=== PATIENT | male | born 1960 | race Caucasian/White ===

== ENCOUNTER 2023-10-20 13:01 | Inpatient (IN) | payer MEDICARE, OTHER, SELFPAY ==
[2023-10-20] VITALS (13 sets, daily range): BP systolic 103–120; BP diastolic 62–81; BMI 26.9
--- NOTE | 2023-10-20 13:13 | HPS.HSE ---
Family Physician
-
Family Physician: NO INTERVIEW UNKNOWN
Chief Complaint
-
cardiac arrest
History of Present Illness
63-year-old gcnwj-gqjc-tabfoyzk male suffered cardiac arrest while at [employer] this morning. CPR performed by bystander emergency room physician at the gym x 5-7 minutes. Patient defibrillated x 2 by AED and regained ROSC.
Transported to [facility] where he underwent a non-contrast Head CT with no acute intracranial findings and a cardiac cath that revealed multivessel disease. Patient was treated with IV heparin and aspirin. Patient was transferred to
[facility] CVICU on 10/19/2028 for further intervention. Patient is pain-free and conversant on arrival to CVICU.
Left Heart Cath (right radial 10/20/23 by Mino Chauhan):
Left main: 30% distal tapering
Left anterior descendin% ostial followed by proximal total occlusion. Small distal LAD or possibly a distal diagonal branch fills via wbdy-bi-elkc collaterals
Left circumflex: Nondominant. Distal circumflex occluded distal posterior left ventricular branch fills distally with faint right to left collaterals
Right coronary artery: 90% proximal followed by 80-90 stenosis. 95% focal stenosis at the acute margin.
Medical History
Past Medical History
Past Medical History: Reports None
Past Surgical History: Reports Other (Right inguinal hernia repair)
Social History
Tobacco: Non-smoker
Alcohol: None
Drug: None
Personal:
Living: With Family
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
Family History
Family History: Not pertinent
Allergies / Home Medications
Allergies reflects when Allergies were last updated in redealize.
Home Medications with original date entered in redealize
Allergy/Medication List:
Allergies
Allergy/AdvReac Type Severity Reaction Status Date / Time
No Known Allergies Allergy Unverified 10/20/23 13:13
No meds
Review of Systems
-
History Source: Patient
A 12 point ROS was completed and negative except as noted: Yes
Constitutional: Reports No Symptoms
EENT: Reports No Symptoms
Respiratory: Reports No Symptoms
Cardiac: Reports See HPI
Abdomen/GI: Reports No Symptoms
: Reports No Symptoms
Musculoskeletal: Reports No Symptoms
Skin: Reports No Symptoms
Neurological: Reports No Symptoms
Endocrine: Reports No Symptoms
Hematologic/Lymphatic: Reports No Symptoms
Psych: Reports No Symptoms
Physical Exam
Physical Exam
General: Well Developed, Well Nourished, No Apparent Distress, Comfortable and Conversant
HEENT: NormoCephalic, Anicteric, Moist mucous membranes, PERRLA, Nose Appears Normal, Ears Appear Normal and Neck Nontender
Respiratory: Clear
Cardiac: S1/S2 and Regular Rhythm
Breast: N/A
GI: Soft, Non Tender, Non Distended, Normal Bowel Sounds, No Hepatosplenomegaly and No Hernias
Rectal: Deferred by Provider
Genito-urinary: Deferred by me
Musculoskeletal: No Cyanosis and No Edema
Skin: Warm, Dry and Other (Right radial TR band without bleeding)
Neuro: AO x 3, No Motor Deficits, Nonfocal/grossly intact and No Sensory Deficits
Hematologic/Lymphatic: No Lymphadenopathy
Psych: Calm
Laboratory Results
-
Labs from [facility]:
EKG: SR @ 85BPM
T-Next gen Trop 25
CBC: WBC 9.1; Hb 16.7; Hct 49.3; Plt 173k
INR: 1.08
PTT: 21
Chem: Na+ 139; K+ 4.2; Chlor 106; CO2 15.7; BUN 11; Creat 1.08; GLU 182
LFT: AST 45; ALT hemolyzed
Data Reviewed
-
Diagnostic Radiology: Report Reviewed by me and Discussed with Physician
Medical Tests (Nuc Med, Echo, EKG etc): Report Reviewed by me and Discussed with Physician
Lab Data: Labs Reviewed by me and Discussed with Physician
Impression/Plan
-
IMPRESSION:
63-year-old male status post outside hospital cardiac arrest achieved ROSC after 5 to 7 minutes CPR and AED defibrillation x 2. Found to have triple-vessel coronary disease by cardiac cath at [facility]. Transferred to [facility]
for CABG evaluation
PLAN:
-Surgeon to review imaging and discuss surgical procedure, risk/benefit ratio, and expected recovery trajectory
-trend troponins
-resume IV Heparin @ 1630
-begin ASA, statin, beta-barbra
-Preop diagnostics including lipid profile-ordered
-Plan for CABG on 10/[address] Land
--- NOTE | 2023-10-20 13:52 | PTCARENOTE ---
received pt from [place] into 2267. Pt is AAOX3, follows commands and moves all extremities, denies HERNANDEZ or dizziness. Sinus rhythm on tele, + peripheral pulses, no edema, denies CP or SOB. Lungs CTA, pox 94% on RA. +BS, denies nausea, DTV, skin
intact. Pt was oriented to CV ICU, safety precautions, and plan of care. Questions encouraged.
--- NOTE | 2023-10-20 14:00 | CON.CAR ---
Consultation
Consultation Request
Date/Time Consultation Requested: October 20, 2023 at 13:59
Date/Time Consultation Performed: October 20, 2023 at 14:00
Requesting Provider: Dr. Dariusz Land
Performing Provider: Dr. Jake Andrade
Reason for Consultation: Pre-CABG. Out of Hospital cardiac arrest with multivessel CADz
Medical History
-
Chief Complaint: Vbo-li-ncewxrok cardiac arrest with catheterization at [facility]
History of Present Illness:
This is a 63-year-old gentleman who is physically quite active. He is an exercise enthusiast running, cycling, and working out at a local [employer]. He ran 5 miles about a week or 2 ago and reported he was had to work a little bit harder in
order to complete the run than he was used to in the past. He went to [employer] and had been on the elliptical then transition to a bench press machine when he experienced sudden loss of consciousness. He received CPR and AED shocks x 2 and
was transferred to [facility]. His initial ECG had no ST elevations. He was referred for semiemergent coronary angiography and found to have subtotal occlusion of the ostial/proximal LAD, occlusion of the distal circumflex and high-grade
stenosis in the proximal and mid RCA which is either a dominant or co-dominant artery. The LAD is noted to fill primarily by left to left collaterals and by faint right to left collaterals.
He denies overt chest pain. He takes no medications. He had generally been feeling well.
Past Medical History
Past Medical History: None
Past Surgical History: Other (Hernia repair)
Social History
Tobacco: Non-Smoker
Alcohol: Occasional
Drug: None
Personal:
Living: With Family
Family History
Family History: Reviewed & Not Pertinent ( Mother in her 90's with permanent pacemaker later in life. Father in 80's. Hx of CADz but not until later in life. No family history of premature CADz)
Allergies / Home Medications
Allergy/AdvReac Type Severity Reaction Status Date / Time
No Known Allergies Allergy Unverified 10/20/23 13:13
Review of Systems
-
History Source: Patient
All other systems: Negative unless noted
Constitutional: No Symptoms (Maybe a little more fatigued over the past several weeks)
EENT: No Symptoms
Respiratory: No Symptoms
Cardiac: No Symptoms
Abdomen/GI: No Symptoms
Musculoskeletal: No Symptoms
Skin: No Symptoms
Physical Exam
Vital Signs
Temp Pulse Resp BP Pulse Ox
98.8 F 87 22 115/81 94
10/20/23 13:26 10/20/23 13:45 10/20/23 13:45 10/20/23 13:26 10/20/23 13:45
Lab Results
10/20/23 13:13
10/20/23 13:13
Physical Exam
General: Well Developed, Well Nourished and No Apparent Distress
HEENT: Normocephalic and Anicteric
Respiratory: Clear
Cardiac: S1/S2, Regular Rhythm and Murmur (None)
GI: Soft, Non Tender, Non Distended and Normal Bowel Sounds
Musculoskeletal: No Clubbing
Skin: Warm and Dry
Neuro: AO x 3 and No Motor Deficits
Impression / Plan
-
IMPRESSION:
-Svi-tr-iwjjtcze cardiac arrest with AED shock x 2
-Multivessel coronary artery disease by coronary angiography
-Unknown lipid
RECOMMENDATION:
-Aspirin 325 mg loading dose followed by 81 mg daily
-Initiate high intensity lipid-lowering
-Check fasting lipid profile if not already done
-Trend serial troponin levels
-Consider echocardiogram if not already done
-CT surgical evaluation ongoing with planned bypass surgery
-Will follow with you
Data Reviewed
-
EKG: Tracing Personally Visualized and interpreted
Medical Tests (Nuc Med, Echo etc): Image Personally Visualized and interpreted (Echocardiogram and coronary angiography) and Other (Cardiac catheterization angiogram)
Old Records: Reviewed
--- NOTE | 2023-10-20 14:09 | CON.INTV ---
Consultation
Consultation Request
Date/Time Consultation Requested: 10/20/2023
Date/Time Consultation Performed: 10/20/2023
Requesting Provider: Dr. Dunlap
Performing Provider: Dr. Haseeb Esparza
Reason for Consultation: Severe triple-vessel coronary artery disease
Medical History
-
History of Present Illness:
63-year-old man who reports no significant past medical history, developed a cardiac arrest while at the gym the morning of 10/20/2023. CPR started immediately by bystander, defibrillated x 2 with AED with ROSC. Transferred to [facility]
hospital, workup showed no abnormalities initially. Subsequently underwent cardiac catheterization that revealed multivessel coronary artery disease.
Treated with anticoagulation and antiplatelets. Transferred to [facility] for evaluation, CT surgery contemplating CABG.
He has been placed in the critical care unit for close monitoring.
Past Medical History
Past Medical History: Other (None)
Social History
Tobacco: Non-smoker
Alcohol: None
Drug: None
Personal:
Living: With Family
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
Family History
Family History: Other (Reports father with coronary artery disease.)
Allergies / Home Medications
Allergies
Allergy/AdvReac Type Severity Reaction Status Date / Time
No Known Allergies Allergy Unverified 10/20/23 13:13
Review of Systems
-
History Source: Patient
All other systems: Negative unless noted
Vitals / Labs / Diagnostic Testing
Vital Signs
Temp Pulse Resp BP Pulse Ox
98.8 F 87 22 115/81 94
10/20/23 13:26 10/20/23 13:45 10/20/23 13:45 10/20/23 13:26 10/20/23 13:45
Lab Data
10/20/23 13:13
10/20/23 13:13
Diagnostic Testing:
Physical Exam
-
HEENT: Normocephalic
Cardiovascular: S1/S2
Respiratory: Clear and Non-Labored Respirations
GI: Soft and Non Distended
Neurology: Awake, Alert, Oriented, AO x 3 and No Motor Deficits
Skin: Warm
General: Comfortable
Assessment
-
Cardiac arrest status post CPR: Out of the hospital.
Three-vessel coronary artery disease
Left heart catheterization: Multivessel coronary artery disease 10/20/[address] Mino Chauhan at [facility]
Never smoker
No prior history of medical problems-does not take any outpatient medication.
Assessment and plan:
Currently asymptomatic-stable. Cooperative. Alert. Neurologically intact.
On evaluation for possible CABG on 10/24/2023.
Continue hemodynamic ICU monitoring. So far no evidence for arrhythmia.
EKG today normal sinus rhythm. Normal EKG
Heparin drip-follow PTT
Aspirin
Beta-barbra
Statins
Ongoing preoperative evaluation per primary team.
-
Diet as tolerated
-
Critical care team will continue to follow.
[2023-10-20 14:37] LABS: INR 1.14; PT 14.4 Sec (11.4-14.6)
[2023-10-20 14:38] LABS: APTT 60.6 Sec (23.4-35.0)
[2023-10-20 14:39] LABS: APTT 62.8 Sec (23.4-35.0)
--- NOTE | 2023-10-20 14:49 | PTCARENOTE ---
1345- 3 ml air removed from TR band R radial artery. negative hematoma, negative bleeding. VSS. See post cath flowsheet. Will follow post cath TR band protocol and continue to monitor.
--- NOTE | 2023-10-20 16:25 | CM ---
CM following for DC planning needs.
Met w/ patient, spouse, dtr. and MIRTHA at bedside.
Introduced CM, explained role.
Pt. resides w/ spouse in a private, 2 story home. Functionally, patient was quite indep. prior to admission w/ ADLs, mobility without the use of any assisted device. Pt. is quite active, was at the gym this AM; runs, bikes, etc.
Pt. has Rx plan and uses [facility] in [place] ([address]) for prescription needs.
Pt. is anticipating CABG on 10/23.
CM completed pre-op teaching.
Reviewed pre and post op routines.
Cardiac Surgery booklet provided.
Discussed post op restrictions to include lifting, driving, flying and sternal precautions.
Reviewed post-op MD appointments, Cardiac Rehab and visit from CT Transitional Care RN.
Plan for CT Surgery next wk.
Anticipated DC plan is for home w/ CT Transitional Care RN.
CM to follow for DC planning needs.
[2023-10-20] MEDS: LIPITOR 80 MG PO (17:10)
[2023-10-20] MEDS: HEPARIN 25000 UNITS/250 ML IV (17:11)
[2023-10-20] MEDS: TYLENOL PO (17:14)
--- NOTE | 2023-10-20 17:15 | PTCARENOTE ---
Patient transported to Ultrasound with RN and transport escort, returned uneventful. Heparin gtt started as ordered. PTT due at 2310. Will continue to monitor.
--- NOTE | 2023-10-20 20:30 | PTCARENOTE ---
Assumed care of patient at 1900. Pt is awake, alert, and oriented. No complaints of pain at this time. Pt remains SR with HR 80's. BP 111/75 MAP 86. Pulse oximetry 93% on room air. Right radial site CDI. Pulses palpable. Pt remains on heparin gtt at
1400units/hr. Pt currently resting comfortably in bed with call aguilar within reach.
[2023-10-20] MEDS: LOPRESSOR 12.5 MG PO (20:32)
[2023-10-20] MEDS: TYLENOL 650 MG PO (20:32)
[2023-10-20 21:17] LABS: Troponin I 0.438 ng/ml
--- NOTE | 2023-10-20 23:33 | PTCARENOTE ---
Pt remains chest pain free. Remains SR with HR 70's-80's. BP 113/65 MAP 76. Pulse oximetry 93% on room air. Remains on heparin gtt.
[2023-10-20 23:44] LABS: APTT 52.9 Sec (23.4-35.0)
[2023-10-21] VITALS (15 sets, daily range): BP systolic 94–135; BP diastolic 54–87; BMI 27.3
[2023-10-21] MEDS: TYLENOL 650 MG PO ×4 (00:15→16:03)
[2023-10-21] MEDS: XANAX 0.25 MG PO (02:53)
[2023-10-21 02:59] LABS: Hematocrit 41.5 % (39.0-52.0); Hemoglobin 14.9 g/dL (13.0-18.0); Mean Corp Hgb Conc. 35.9 g/dL (33.0-37.0); Mean Corpuscular Volume 86.5 fL (80.0-94.0); Mean Platelet Volume 9.5 fL (7.4-10.4); Platelet Count 154 10^3/uL (130-400); Red Cell Dist. Width 12.7 % (11.5-14.5); White Blood Cell Count 10.9 10^3/uL (4.8-10.8)
[2023-10-21 03:20] LABS: Troponin I 0.352 ng/ml
--- NOTE | 2023-10-21 03:30 | PTCARENOTE ---
Pt remains SR with HR 60's-70's. BP 120/73 MAP 87. No complaints of chest pain. Morning labs collected. Weight obtained. Remains on heparin gtt.
[2023-10-21 04:13] LABS: ALT (SGPT) 27 U/L (0-50); AST (SGOT) 46 U/L (17-59); Albumin 3.6 g/dl (3.5-5.0); Alkaline Phosphatase 44 U/L (38-126); Blood Urea Nitrogen 11 mg/dl (9-20); Calcium 8.9 mg/dl (8.4-10.2); Carbon Dioxide 21 mmol/L (22-30); Chloride 106 mmol/L (98-107); Direct Bilirubin 0.3 mg/dl (0.0-0.4); Estimated Creatinine Clearance 107 ml/min; Glucose 100 mg/dl (70-99); HDL Cholesterol 47 mg/dl; LDL Cholesterol, Calculated 139 mg/dl; Sodium 137 mmol/L (135-145); Total Bilirubin 1.7 mg/dl (0.2-1.3); Total Cholesterol 199 mg/dl (50-199); Triglyceride 69 mg/dl (10-149); Very Low Density Lipoprotein 13 mg/dl (0-30); eGFR > 60.00
[2023-10-21] MEDS: TYLENOL PO ×2 (05:12→19:56)
[2023-10-21 06:27] LABS: APTT 69.2 Sec (23.4-35.0)
--- NOTE | 2023-10-21 08:00 | PTCARENOTE ---
pt received from previous RN, oriented, in bed. SR on the monitor, HR 60-80s. pt denies CP or SOB. SBP 100s. palpable pulses. no edema. pt on RA, POX 90-94%. lungs clear. pt abdomen s/n, denies n/v. diet tolerated well. voids. R radial site c/d/i.
PIV x2. heparin gtt running per protocol. see worklist for VS, I&O, and assessment.
[2023-10-21] MEDS: LOW STRENGTH ASPIRIN 81 MG PO (08:38)
[2023-10-21] MEDS: LOPRESSOR 12.5 MG PO ×2 (08:38→19:49)
[2023-10-21] MEDS: HEPARIN 25000 UNITS/250 ML IV ×2 (09:42→22:09)
--- NOTE | 2023-10-21 10:36 | W.PN.CARDCBS ---
Today's Communication / Plan
-
Awaiting CABG
Chest x-ray pending
Telemetry stable
Repeat echocardiogram
Antiplatelet therapy and lipid-lowering.
Eventual Plavix with aspirin given mildly elevated troponins
Impression / Plan
-
IMPRESSION:
-Sag-bg-fdrqpmir cardiac arrest with AED shock x 2
-Multivessel coronary artery disease by coronary angiography
-Unknown lipid
Carotid ultrasound 10/20/2023: Soft plaque is identified in the bilateral common carotid arteries and bilateral carotid bulbs. Carotid velocity measurements bilaterally are consistent with less than 50% internal carotid artery stenosis. Vertebral
artery flow is antegrade bilaterally.
Echocardiogram 09/23/2023 (performed at [facility]): Technically difficult study. Ejection fraction 55% with likely hypokinesis of the anterior septum, distal septum and apex. Thickened aortic valve predominantly noncoronary cusp likely trileaflet.
In parasternal long axis view thickening appears more prominent. Flow near the mitral valve. May be mitral regurgitation.
RECOMMENDATION:
-Owa-zw-oyvkyhma arrest resuscitated at [facility] with AED shock x 2 and CPR. Cardiac catheterization with multivessel coronary artery disease.
-Plan for CABG being followed by CT surgery.
-Rib pain and chest x-ray pending.
-Continue lipid-lowering which was started this admission and antiplatelet treatment. Peak troponin 0.438. Eventually Plavix in addition.
-Echocardiogram performed elsewhere with fair quality. Normal heart function and mild segmental wall motion abnormality. Aortic valve thickening and flow near the mitral valve. We will repeat echocardiogram here to assess valves.
-Tele stable
Progress Note - Tree [facility]
Subjective
Date of Service: October 21, 2023
Some rib pain noted. No chest pain or palpitations. His is at the bedside.
Objective
Labs:
10/21/23 02:43
10/21/23 02:43
Labs
Hgb 14.9 g/dL (13.0-18.0) 10/21/23 02:43
Hct 41.5 % (39.0-52.0) 10/21/23 02:43
Plt Count 154 10^3/uL (130-400) 10/21/23 02:43
PT 14.4 Sec (11.4-14.6) 10/20/23 14:11
INR 1.14 10/20/23 14:11
APTT 69.2 Sec (23.4-35.0) H 10/21/23 06:04
Sodium 137 mmol/L (135-145) 10/21/23 02:43
Potassium 4.0 mmol/L (3.5-5.1) 10/21/23 02:43
BUN 11 mg/dl (9-20) 10/21/23 02:43
Creatinine 0.8 mg/dL (0.7-1.3) 10/21/23 02:43
Glucose 100 mg/dl (70-99) H 10/21/23 02:43
Troponins
10/20/23 10/20/23 10/21/23
14:11 20:41 02:43
Troponin I 0.320 H* 0.438 H* D 0.352 H*
Vital Signs and I&O:
Vital Signs
Temp Pulse Resp BP Pulse Ox
97.6 F 75 19 114/70 94
10/21/23 08:00 10/21/23 10:15 10/21/23 10:15 10/21/23 10:00 10/21/23 10:33
Vital Signs
Temp Pulse Resp BP Pulse Ox
97.6 F 75 19 114/70 94
10/21/23 08:00 10/21/23 10:15 10/21/23 10:15 10/21/23 10:00 10/21/23 10:33
Intake & Output
10/19/23 10/20/23 10/21/23 10/22/23
06:59 06:59 06:59 06:59
Intake Total 420 / 420 51 / 51
Output Total 1300 / 1300 1000 / 1000
Balance -880 / -880 -949 / -949
Physical Exam
Physical Exam
General: Well developed, well nourished in NAD.
Heart: Non displaced PMI, RRR, no murmurs, No S3, S4, no rubs.
Lungs: Clear to auscultation bilaterally, no wheeze, rhonchi, rubs bilaterally,
normal expiratory phase.
Extremities: No clubbing, cyanosis or edema bilaterally.
Neuro: Grossly nonfocal, awake, alert and oriented x3.
--- NOTE | 2023-10-21 12:14 | W.PN.CT ---
Today's Communication / Plan
-
Continue heparin drip
Preoperative studies ordered awaiting 2 view chest x-ray and carotid ultrasounds
Echo report pending, images are poor quality and study will be repeated today.
Assessment / Plan
-
Assessment: Outside hospital cardiac arrest with CPR defibrillation transferred to [facility] for urgent cath which revealed critical coronary artery disease, transfer to [facility] for CABG on Monday
Preoperative studies ordered
Continue heparin drip
Discussed patient care with: Nursing
Subjective
Procedure
Preop CABG 4 10/24/2023
No complaints, no chest pain no anginal symptoms overnight.
Carotid ultrasound study done
2 view chest x-ray today
Continue heparin drip
Maximize medical management of critical CAD
Patient may shower and can increase activity out of bed ad nunu.
Echo today
-
Date of Service: October 21, 2023
Objective Data
-
Lab Results
10/21/23 02:43
10/21/23 02:43
PT 14.4 Sec (11.4-14.6) 10/20/23 14:11
INR 1.14 10/20/23 14:11
APTT 69.2 Sec (23.4-35.0) H 10/21/23 06:04
Vital Signs
Vital Signs
Temp Pulse Resp BP Pulse Ox
97.6 F 75 19 114/70 94
10/21/23 08:00 10/21/23 10:15 10/21/23 10:15 10/21/23 10:00 10/21/23 10:33
CT Intake/Output/Weight
10/20/23 10/21/23 10/21/23
18:59 06:59 18:59
Intake Total 240 / 240 180 / 420 51 / 51
Output Total 200 / 200 1100 / 1300 1000 / 1000
Balance 40 / 40 -920 / -880 -949 / -949
SaO2: 94
Physical Exam
-
General: Awake, Oriented and AOx3
Cardiovascular: Regular rate & rhythm
Respiratory: Clear
Extremities: No Edema
Data Reviewed
-
Lab Results: Results Reviewed
Medications: Active Meds Reviewed
Chest X-Ray: Image Reviewed
ECG: Image Reviewed
--- NOTE | 2023-10-21 12:45 | PTCARENOTE ---
pt VSS, no changes in assessment. pt OOB to chair. voids in urinal. denies CP. heparin gtt running per protocol.
[2023-10-21 13:31] LABS: Glycohemoglobin (HgbA1c) 5.5 % (4.0-5.6)
[2023-10-21 13:39] LABS: APTT 86.7 Sec (23.4-35.0)
--- NOTE | 2023-10-21 16:36 | PTCARENOTE ---
pt VSS, no changes in assessment. pt showered. OOB in chair. heparin gtt running per protocol. no c/o CP or SOB.
[2023-10-21] MEDS: LIPITOR 80 MG PO (18:21)
[2023-10-21 20:06] LABS: APTT 82.8 Sec (23.4-35.0)
--- NOTE | 2023-10-21 21:37 | PTCARENOTE ---
Addendum entered by Monet Orr RN 10/22/23 02:07:
Pt. with complaints of 4/10 left rib pain from CPR. Pt. does not want to take scheduled Tylenol for the pain since it is not affecting his ability to sleep. No complaints of CP at this time. Pt. instructed to call RN immediately with new onset CP
and verbalizes understanding.
Original Note:
Pt. received as transfer from CVICU at change of shift. VSS, NSR on tele. Heparin gtt currently infusing at 17ml/hr. R radial cath site dry/intact and open to air. Plan of care discussed and pt. verbalizes understanding. Ambulating independently
in room without difficulty. Can make needs known. Call aguilar within reach.
[2023-10-22] VITALS (7 sets, daily range): BP systolic 111–143; BP diastolic 71–89; BMI 26.8
[2023-10-22] MEDS: TYLENOL PO (00:21)
[2023-10-22] MEDS: TYLENOL 650 MG PO ×2 (03:49→08:58)
[2023-10-22 04:11] LABS: APTT 90.8 Sec (23.4-35.0)
--- NOTE | 2023-10-22 05:53 | W.PN.CT ---
Today's Communication / Plan
-
Plan:
-Ongoing preop evaluation/workup
-Will repeat echo
-Cont. heparin gtt
-For CABG by Dr. Land likely 10/24/23
Assessment / Plan
-
Assessment:
-Out of hospital cardiac arrest S/p CPR and AED x 2
-Severe 3v CAD/30% distal LM
-No significant medical hx
-LVEF 55% per limited echo obtained @ [facility]
-S/P R inguinal herniorrhaphy
Discussed patient care with: Cardiology, Nursing, Pharmacy and Care Team
Subjective
-
Date of Service: October 22, 2023
No issues overnight, denies CP/SOB. Currently on heparin gtt
Objective Data
-
Lab Results
10/21/23 02:43
10/21/23 02:43
PT 14.4 Sec (11.4-14.6) 10/20/23 14:11
INR 1.14 10/20/23 14:11
APTT 90.8 Sec (23.4-35.0) H 10/22/23 03:40
Vital Signs
Vital Signs
Temp Pulse Resp BP Pulse Ox
98.5 F 75 16 126/76 92
10/22/23 03:37 10/22/23 03:35 10/22/23 03:37 10/22/23 03:35 10/22/23 03:37
CT Intake/Output/Weight
10/21/23 10/21/23 10/22/23
06:59 18:59 06:59
Intake Total 180 / 420 187 / 187
Output Total 1100 / 1300 1000 / 1000
Balance -920 / -880 -813 / -813
SaO2: 92 (RA)
Physical Exam
-
General: Awake, Oriented and AOx3
Cardiovascular: Regular rate & rhythm, No Murmurs, No Rub and No Gallop
Respiratory: Clear
Extremities: No Edema
Data Reviewed
-
Lab Results: Results Reviewed
Medications: Active Meds Reviewed
Chest X-Ray: Report Reviewed and Image Reviewed
ECG: Report Reviewed and Image Reviewed
--- NOTE | 2023-10-22 08:15 | PTCARENOTE ---
Assumed care of pt from prev nsg shift; Pt AAOx3 w/no c/o CP or SOB; Pt does c/o 4-5/10 L rib pain post CPR prior to admission. Pt taking scheduled PO Tylenol intermittently. Pt agreeable to taking the 0800 dose. Spoke w/CT surgery PA to have
scheduled Tylenol switched to PRN per pt request. Pt's VSS w/HR in the 90's & BP this AM 124/89. Pt is SR/ST on telemetry monitoring.
[2023-10-22] MEDS: LOW STRENGTH ASPIRIN 81 MG PO (08:58)
[2023-10-22] MEDS: LOPRESSOR 12.5 MG PO ×2 (08:58→20:01)
--- NOTE | 2023-10-22 10:00 | W.PN.CARDCBS ---
Today's Communication / Plan
-
Continue to follow telemetry
Continue current medications
Await CABG
Impression / Plan
-
IMPRESSION:
-Jfr-dl-ljoboxys cardiac arrest with AED shock x 2 and CPR
-Multivessel coronary artery disease by coronary angiography
-Segmental wall motion abnormalities on echo with ejection fraction 50%
-Hyperlipidemia
-Aortic valve sclerosis
-Rib pain
Carotid ultrasound 10/20/2023: Soft plaque is identified in the bilateral common carotid arteries and bilateral carotid bulbs. Carotid velocity measurements bilaterally are consistent with less than 50% internal carotid artery stenosis. Vertebral
artery flow is antegrade bilaterally.
Echocardiogram 09/23/2023 (performed at [place]): Technically difficult study. Ejection fraction 55% with likely hypokinesis of the anterior septum, distal septum and apex. Thickened aortic valve predominantly noncoronary cusp likely trileaflet.
In parasternal long axis view thickening appears more prominent. Flow near the mitral valve. May be mitral regurgitation.
Echocardiogram ([facility]) 10/22/2023: Normal left ventricular size. LVEF 50%. Hypokinetic - septum, brent-septal, anterior wall and apex. Mild LVH. Normal RV. Mild MR. Aortic valve sclerosis. Trace TR. PA pressure 25 to 30 mmHg.
RECOMMENDATION:
-Evv-zd-hmoscwno arrest resuscitated at [facility] with AED shock x 2 and CPR. Cardiac catheterization with multivessel coronary artery disease.
-Plan for CABG being followed by CT surgery.
-Rib pain stable
-Continue lipid-lowering which was started this admission and antiplatelet treatment. Peak troponin 0.438. Eventually Plavix in addition.
-Echocardiogram performed elsewhere with fair quality. Echocardiogram performed yesterday as noted with ejection fraction 50% and segmental wall motion abnormality. Eventually reassess as an outpatient after revascularization.
-Aortic valve sclerosis noted.
-Tele with sinus rhythm and some monomorphic PVCs. Asymptomatic.
Discussed with patient and family at the bedside.
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
Subjective
Date of Service: October 22, 2023
He denies chest pain and palpitations. Rib pain noted.
Objective
Labs:
10/21/23 02:43
10/21/23 02:43
Labs
Hgb 14.9 g/dL (13.0-18.0) 10/21/23 02:43
Hct 41.5 % (39.0-52.0) 10/21/23 02:43
Plt Count 154 10^3/uL (130-400) 10/21/23 02:43
PT 14.4 Sec (11.4-14.6) 10/20/23 14:11
INR 1.14 10/20/23 14:11
APTT 90.8 Sec (23.4-35.0) H 10/22/23 03:40
Sodium 137 mmol/L (135-145) 10/21/23 02:43
Potassium 4.0 mmol/L (3.5-5.1) 10/21/23 02:43
BUN 11 mg/dl (9-20) 10/21/23 02:43
Creatinine 0.8 mg/dL (0.7-1.3) 10/21/23 02:43
Glucose 100 mg/dl (70-99) H 10/21/23 02:43
Troponins
10/20/23 10/20/23 10/21/23
14:11 20:41 02:43
Troponin I 0.320 H* 0.438 H* D 0.352 H*
Vital Signs and I&O:
Vital Signs
Temp Pulse Resp BP Pulse Ox
99.2 F 90 18 124/89 94
10/22/23 07:58 10/22/23 08:00 10/22/23 08:19 10/22/23 08:00 10/22/23 07:58
Vital Signs
Temp Pulse Resp BP Pulse Ox
99.2 F 90 18 124/89 94
10/22/23 07:58 10/22/23 08:00 10/22/23 08:19 10/22/23 08:00 10/22/23 07:58
Intake & Output
10/20/23 10/21/23 10/22/23 10/23/23
06:59 06:59 06:59 06:59
Intake Total 420 / 420 187 / 187 480 / 480
Output Total 1300 / 1300 1000 / 1000
Balance -880 / -880 -813 / -813 480 / 480
Physical Exam
Physical Exam
General: Well developed, well nourished in NAD.
Heart: Non displaced PMI, RRR, no murmurs, No S3, S4, no rubs.
Lungs: Clear to auscultation bilaterally, no wheeze, rhonchi, rubs bilaterally,
normal expiratory phase.
Extremities: No clubbing, cyanosis or edema bilaterally.
Neuro: Grossly nonfocal, awake, alert and oriented x3.
--- NOTE | 2023-10-22 11:04 | PTCARENOTE ---
This RN had lengthy discussion w/pt & pt's spouse re: plan of care & pre-op surgery procedures for Monday evening & the morning of surgery. Emotional support provided. CT surgeon & CT surgery PA in to see pt as well. Plan of care ongoing.
[2023-10-22] MEDS: HEPARIN 25000 UNITS/250 ML IV (12:13)
[2023-10-22] MEDS: LIPITOR 80 MG PO (17:52)
[2023-10-22] MEDS: SENOKOT-S PO (20:04)
--- NOTE | 2023-10-22 23:00 | PTCARENOTE ---
Pt. remains NSR on tele with HR 60s-80s. Heparin gtt infusing at 17ml/hr. Pt. with complaints of 4/10 left rib pain, declines Tylenol. Denies CP. Pt. showered, ambulating independently in room without difficulty. Plan of care regarding OR prep
discussed. Call aguilar within reach.
[2023-10-23] MEDS: HEPARIN 25000 UNITS/250 ML IV ×2 (03:23→18:02)
[2023-10-23 03:24] VITALS: BP 114/68
[2023-10-23 03:44] VITALS: BMI 26.6
[2023-10-23 03:55] LABS: Hematocrit 40.9 % (39.0-52.0); Hemoglobin 14.6 g/dL (13.0-18.0); Mean Corp Hgb Conc. 35.7 g/dL (33.0-37.0); Mean Corpuscular Hgb 31.1 pg (27.0-31.0); Mean Platelet Volume 9.7 fL (7.4-10.4); Platelet Count 145 10^3/uL (130-400); Red Cell Dist. Width 12.6 % (11.5-14.5); White Blood Cell Count 10.4 10^3/uL (4.8-10.8)
[2023-10-23 04:00] LABS: APTT 76.2 Sec (23.4-35.0)
[2023-10-23 04:10] LABS: Blood Urea Nitrogen 12 mg/dl (9-20); Calcium 9.3 mg/dl (8.4-10.2); Carbon Dioxide 21 mmol/L (22-30); Chloride 107 mmol/L (98-107); Estimated Creatinine Clearance 107 ml/min; Glucose 102 mg/dl (70-99); Sodium 139 mmol/L (135-145); eGFR > 60.00
--- NOTE | 2023-10-23 05:21 | W.PN.CT ---
Today's Communication / Plan
-
Plan:
-Ongoing preop evaluation/workup
-Cont. 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
-For CABG by Dr. Land tomorrow, 10/24/23
Assessment / Plan
-
Assessment:
-Out of hospital cardiac arrest S/p CPR and AED x 2
-Severe 3v CAD/30% distal LM
-Hyperlipidemia
-LVEF 55%
-S/P R inguinal herniorrhaphy
Discussed patient care with: Cardiology, Nursing, Respiratory Therapy, Pharmacy and Care Team
Subjective
-
Date of Service: October 23, 2023
No issues overnight, denies CP/SOB
Objective Data
-
Lab Results
10/23/23 03:34
10/23/23 03:34
PT 14.4 Sec (11.4-14.6) 10/20/23 14:11
INR 1.14 10/20/23 14:11
APTT 76.2 Sec (23.4-35.0) H 10/23/23 03:34
Vital Signs
Vital Signs
Temp Pulse Resp BP Pulse Ox
98.2 F 68 18 114/68 94
10/23/23 03:28 10/23/23 03:24 10/23/23 03:28 10/23/23 03:24 10/23/23 03:28
CT Intake/Output/Weight
10/22/23 10/22/23 10/23/23
06:59 18:59 06:59
Intake Total 960 / 960
Balance 960 / 960
SaO2: 94 (RA)
Physical Exam
-
General: Awake, Oriented and AOx3
Cardiovascular: Regular rate & rhythm, No Murmurs, No Rub and No Gallop
Respiratory: Decreased Breath Sounds
Extremities: No Edema
Data Reviewed
-
Lab Results: Results Reviewed
Medications: Active Meds Reviewed
Chest X-Ray: Report Reviewed and Image Reviewed
ECG: Report Reviewed and Image Reviewed
[2023-10-23 07:54] VITALS: BP 116/83
[2023-10-23] MEDS: LOPRESSOR 12.5 MG PO ×2 (08:45→19:25)
[2023-10-23] MEDS: LOW STRENGTH ASPIRIN 81 MG PO (08:46)
[2023-10-23] MEDS: SENOKOT-S 1 TABLET PO ×2 (08:46→19:25)
[2023-10-23 12:10] VITALS: BP 111/64
--- NOTE | 2023-10-23 12:12 | PTCARENOTE ---
Vitals and Assessment as documented - All stable. Pt provided details on CVOR prep and post op procedures. Patient asking appropriate question but does appear nervous. Family at bedside.
--- NOTE | 2023-10-23 14:01 | W.PN.UPDATE ---
Update Note
Progress Note Update
Procedure Type:�Isolated CABG
PERIOPERATIVE OUTCOME ESTIMATE %
Operative Mortality 0.718%
Morbidity & Mortality 3.8%
Stroke 0.701%
Renal Failure 0.455%
Reoperation 1.94%
Prolonged Ventilation 1.79%
Deep Sternal Wound Infection 0.088%
Long Hospital Stay (>14 days) 1.86%
Short Hospital Stay (<6 days)* 66.4%
*higher values reflect a better outcome
Clinical Summary
Planned Surgery: Isolated CABG, Elective, First cardiovascular surgery
Demographics: 63 year old, White, male, 95kg, 188cm, BMI: 26.9 kg/m�
Insurance/Payor: Medicare
Lab Values: Creatinine: 0.8 mg/dL, Hematocrit: 40.9%, WBC Count: 10.4 10�/�L, Platelet Count: 425202 cells/�L
Substance Abuse: Never smoker, Alcohol use: <=1 drink/week
Cardiac Status: Ejection Fraction = 50%
Coronary Artery Disease: 3 vessels diseased, Proximal LAD Stenosis >=70%, Non-ST Elevation CT, CT: 1 to 7 Days
Valve Disease: Mild MR, Trivial/Trace TR
Patient scheduled for CABG tomorrow. Dr. Kruse discussed procedure and risks with patient and family. All questions answered. Consent signed and on chart.
Plan for CABG in a.m.
Preop orders in computer
N.p.o. after midnight
--- NOTE | 2023-10-23 14:52 | W.PN.CARDCBS ---
Today's Communication / Plan
-
Continue current cardiac meds
Monitor on telemetry
Impression / Plan
-
IMPRESSION:
-Fiq-fi-rskjffam cardiac arrest with AED shock x 2 and CPR
-Multivessel coronary artery disease by coronary angiography
-Segmental wall motion abnormalities on echo with ejection fraction 50%
-Hyperlipidemia
-Aortic valve sclerosis
-Rib pain
Carotid ultrasound 10/20/2023: Soft plaque is identified in the bilateral common carotid arteries and bilateral carotid bulbs. Carotid velocity measurements bilaterally are consistent with less than 50% internal carotid artery stenosis. Vertebral
artery flow is antegrade bilaterally.
Echocardiogram 09/23/2023 (performed at [place]): Technically difficult study. Ejection fraction 55% with likely hypokinesis of the anterior septum, distal septum and apex. Thickened aortic valve predominantly noncoronary cusp likely trileaflet.
In parasternal long axis view thickening appears more prominent. Flow near the mitral valve. May be mitral regurgitation.
Echocardiogram ([facility]) 10/22/2023: Normal left ventricular size. LVEF 50%. Hypokinetic - septum, brent-septal, anterior wall and apex. Mild LVH. Normal RV. Mild MR. Aortic valve sclerosis. Trace TR. PA pressure 25 to 30 mmHg.
RECOMMENDATION:
-Vqo-er-lphdxvbb arrest resuscitated at [facility] with AED shock x 2 and CPR
-Peak troponin 0.438.
-Cardiac catheterization with multivessel coronary artery disease.
-Plan for CABG being followed by CT surgery.
-Tele with sinus rhythm and some monomorphic PVCs. Asymptomatic.
-Echocardiogram performed elsewhere with fair quality. Echocardiogram performed yesterday as noted with ejection fraction 50% and segmental wall motion abnormality. Eventually reassess as an outpatient after revascularization.
-Cont ASA, statin, BB, heparin gtt. Eventual Plavix.
Discussed with CT surgery KAYE
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
Subjective
Date of Service: October 23, 2023
No acute overnight events. Patient's resting comfortably out of bed to chair. No significant chest discomfort or shortness of breath. No lower extremity edema. Does report some mild left axillary discomfort related to chest compressions.
Objective
Labs:
10/23/23 03:34
10/23/23 03:34
Labs
Hgb 14.6 g/dL (13.0-18.0) 10/23/23 03:34
Hct 40.9 % (39.0-52.0) 10/23/23 03:34
Plt Count 145 10^3/uL (130-400) 10/23/23 03:34
PT 14.4 Sec (11.4-14.6) 10/20/23 14:11
INR 1.14 10/20/23 14:11
APTT 76.2 Sec (23.4-35.0) H 10/23/23 03:34
Sodium 139 mmol/L (135-145) 10/23/23 03:34
Potassium 4.0 mmol/L (3.5-5.1) 10/23/23 03:34
BUN 12 mg/dl (9-20) 10/23/23 03:34
Creatinine 0.8 mg/dL (0.7-1.3) 10/23/23 03:34
Glucose 102 mg/dl (70-99) H 10/23/23 03:34
Troponins
10/20/23 10/20/23 10/21/23
14:11 20:41 02:43
Troponin I 0.320 H* 0.438 H* D 0.352 H*
Vital Signs and I&O:
Vital Signs
Temp Pulse Resp BP Pulse Ox
98.7 F 67 18 116/83 95
10/23/23 12:49 10/23/23 11:00 10/23/23 12:49 10/23/23 07:54 10/23/23 12:49
Vital Signs
Temp Pulse Resp BP Pulse Ox
98.7 F 67 18 116/83 95
10/23/23 12:49 10/23/23 11:00 10/23/23 12:49 10/23/23 07:54 10/23/23 12:49
Intake & Output
10/21/23 10/22/23 10/23/23 10/24/23
06:59 06:59 06:59 06:59
Intake Total 420 / 420 187 / 187 960 / 960
Output Total 1300 / 1300 1000 / 1000
Balance -880 / -880 -813 / -813 960 / 960
Physical Exam
Physical Exam
Gen: NAD, AAOx3
HEENT: NC/AT, sclera anicteric
Neck: No JVD
CV: RRR, NL s1/s2, no M/R/G
Lungs: CTAB
Abd: S/ND
Ext: No LE edema
Skin: Warm, dry
Neuro: Non-focal
[2023-10-23 15:46] VITALS: BP 124/81
[2023-10-23] MEDS: LIPITOR 80 MG PO (18:02)
[2023-10-23 19:25] VITALS: BP 122/75
[2023-10-23 22:17] VITALS: BP 116/83
--- NOTE | 2023-10-23 23:00 | PTCARENOTE ---
Pt. remains in NSR on tele with HR 60s-70s. Heparin gtt infusing at 17ml/hr. No complaints of pain at this time. Ambulating independently without difficulty. Pt. clipped for CVOR procedure in AM and first CHG shower completed. PA to bedside to
assess pt. readiness for OR in AM. Plan of care discussed and pt. verbalizes understanding. Call aguilar within reach.
[2023-10-24] VITALS (21 sets, daily range): BP systolic 82–160; BP diastolic 54–144; BMI 26.2
[2023-10-24] MEDS: LOPRESSOR 25 MG PO (06:06)
[2023-10-24] MEDS: PROTONIX 40 MG PO (06:06)
[2023-10-24] MEDS: MAGNESIUM OXIDE 500 MG PO (06:06)
[2023-10-24] MEDS: BACTROBAN 2% OINTMENT 1 APPLIC NASAL ×2 (06:07→19:21)
[2023-10-24 06:31] LABS: APTT 61.9 Sec (23.4-35.0)
--- NOTE | 2023-10-24 07:28 | W.CVOR.SURPR ---
CVOR Surgeon Immed Pre Op
-
I have examined this patient prior to performance of the scheduled procedure.
The patient's condition is unchanged from the time of the dictated/written History and
Physical and the patient is able to undergo the scheduled procedure.
[2023-10-24 08:22] LABS: ACT+ - POC 112 Seconds (82-134)
[2023-10-24 08:34] LABS: Urine Albumin Trace (Neg - Trace); Urine Bilirubin 1+ (Negative); Urine Character Clear (Clear); Urine Color Yellow; Urine Glucose Negative (Negative); Urine Ketone 1+ (Negative); Urine Leukocyte Negative (Negative); Urine Nitrite Negative (Negative); Urine Occult Blood Negative (Negative); Urine Specific Gravity 1.025 (<1.030); Urine Urobilinogen Negative (Neg - 1+)
--- NOTE | 2023-10-24 09:24 | CM ---
Reviewed chart. Mr. Sarkar is in the operating room today. Prior to admission he resides with his spouse in a two story home. Prior to admission he was independent with ambulation and adls. He does not have any DME in the home. Medial work-up in
progress. The discharge plan is to return home with his spouse and a home visit by the Cardiothoracic Transitional Care Nurse when medically stable.
[2023-10-24 09:58] LABS: ACT+ - POC 375 Seconds (82-134)
[2023-10-24 10:06] LABS: ACT+ - POC 391 Seconds (82-134)
[2023-10-24 10:17] LABS: ACT+ - POC 465 Seconds (82-134)
[2023-10-24 10:28] LABS: B.E. - POC -3.2 mmol/L; Glucose - POC 101 mg/dl (70-99); HCO3 - POC 22 mmol/L (21-29); Hematocrit - POC 40 % PCV (42-52); Hemodilution- POC No; Hemoglobin Calculated - POC 13.4; Ionized Calcium - POC 1.19 mmol/L (1.12-1.27); O2 Saturation %Calculated-POC 99.7 5 (92-96); PCO2 - POC 36 mmHg (35-45); PO2 - POC 199 mmHg (80-100); POC Comment PRE; Potassium - POC 3.6 mmol/L (3.6-5.0); Sodium - POC 140 mmol/L (135-145); pH - POC 7.38 (7.35-7.45)
[2023-10-24 10:37] LABS: ACT+ - POC 447 Seconds (82-134)
[2023-10-24 10:50] LABS: B.E. - POC -2.4 mmol/L; Glucose - POC 153 mg/dl (70-99); HCO3 - POC 24 mmol/L (21-29); Hematocrit - POC 31 % PCV (42-52); Hemodilution- POC Yes; Hemoglobin Calculated - POC 10.4; Ionized Calcium - POC 1.03 mmol/L (1.12-1.27); O2 Saturation %Calculated-POC 99.8 5 (92-96); PCO2 - POC 47 mmHg (35-45); PO2 - POC 255 mmHg (80-100); POC Comment CPB; Potassium - POC 5.3 mmol/L (3.6-5.0); Sodium - POC 137 mmol/L (135-145); pH - POC 7.32 (7.35-7.45)
[2023-10-24 10:59] LABS: ACT+ - POC 489 Seconds (82-134)
[2023-10-24 11:23] LABS: B.E. - POC -3.7 mmol/L; Glucose - POC 162 mg/dl (70-99); HCO3 - POC 22 mmol/L (21-29); Hematocrit - POC 38 % PCV (42-52); Hemodilution- POC Yes; Hemoglobin Calculated - POC 12.9; Ionized Calcium - POC 1.07 mmol/L (1.12-1.27); O2 Saturation %Calculated-POC 99.8 5 (92-96); PCO2 - POC 43 mmHg (35-45); PO2 - POC 254 mmHg (80-100); POC Comment REWARM; Potassium - POC 4.6 mmol/L (3.6-5.0); Sodium - POC 138 mmol/L (135-145); pH - POC 7.32 (7.35-7.45)
[2023-10-24 11:27] LABS: ACT+ - POC 109 Seconds (82-134)
[2023-10-24 11:38] LABS: B.E. - POC -1.9 mmol/L; Glucose - POC 125 mg/dl (70-99); HCO3 - POC 25 mmol/L (21-29); Hematocrit - POC 34 % PCV (42-52); Hemodilution- POC Yes; Hemoglobin Calculated - POC 11.5; Ionized Calcium - POC 1.31 mmol/L (1.12-1.27); O2 Saturation %Calculated-POC 97.3 5 (92-96); PCO2 - POC 51 mmHg (35-45); PO2 - POC 105 mmHg (80-100); POC Comment POST; Potassium - POC 3.5 mmol/L (3.6-5.0); Sodium - POC 142 mmol/L (135-145)
--- NOTE | 2023-10-24 11:48 | W.PN.CT.SURG ---
CT Surgery Operative Note
-
Pre-op Diagnosis: cardiac arrest
CAD
NSTEMI
Post-op Diagnosis: Same
Procedure: Cabg x 3 on pump
Velasco - diag/lad
ao- svg- pda
MATILDA clip #35
RSF
REVH
Primary Surgeon: Shanda
Assisting Surgeons: Dr Ayaan Miller- [facility] CT fellow
Lexus Zini - endovein
Specimen: None
Cultures: None
Complications / Blood Loss: None
Findings: Terrance with preserved EF pre and post revasc
MATILDA without clot, completely occluded post clip
Good conduit
Lad 1.5 intraluminal, ended before apex
Diag 1.5 intraluminal, occluded at lad
Pda 2.0 diam
[2023-10-24] MEDS: NEURONTIN PO (12:06)
[2023-10-24] MEDS: LOPRESSOR PO (12:06)
[2023-10-24] MEDS: SENOKOT-S PO (12:06)
[2023-10-24] MEDS: LOW STRENGTH ASPIRIN PO (12:06)
[2023-10-24] MEDS: VERSED 0.5 MG IV ×3 (12:29→12:59)
--- NOTE | 2023-10-24 12:32 | W.PN.UPDATE ---
Update Note
Progress Note Update
63-year-old male suffered out of hospital cardiac arrest on 10/20/23. Immediate high-quality bystander CPR performed (by emergency room physician) and AED defibrillation x 2 with subsequent ROSC. Transported to [facility] where he
underwent a non-contrast Head CT with no acute intracranial findings and a cardiac cath that revealed multivessel disease. Patient was treated with IV heparin and aspirin and transferred to [facility] CVICU.
IV fluids: 1000
U.O.:� 400
Blood:� none
Wires:� V-wires
Gtts:� Insulin, Precedex
�
NEURO: sedated on Precedex, pupils +2mm B/L
RESP: #8OT @23cm> 500/100%/14/5. Lungs clear B/L. 1 mediastinal and L pleural (60cc on arrival) chest tubes to single Pleuravac with -20cm suction. Sanguineous drainage
CV: RRR +S1, S2, no S3, no�rub, no murmur. Dermabond to median sternotomy. RIJ w/Weld intact
ABD: round, soft, no BS
EXT: no edema, +2/4 DP pulses B/L, no femoral bruit, RLE WALLACE wrap intact; left radial A-line intact
: Jeff with clear yellow urine
�
A/P: POD #0 s/p CABG x 3 BLANCO-LAD and diag; SBG-PDA. Left atrial appendage exclusion #35 mm clip
Pre-op EF 50%�
- wean and extubate
# CAD/pre-hospital cardiac arrest
- will require ASA/Plavix, high intensity statin, beta-barbra
- cardiology to comment on need for LifeVest/rhythm monitor on discharge
�
# acute surgical blood loss anemia-expected
- trend CBC
�
[2023-10-24 12:42] LABS: Glucose - Point of Care 108 mg/dl (70-99)
[2023-10-24 12:45] LABS: HCO3 23.1 mmol/L (21-28); Ionized Calcium 1.18 mMOL/L (1.15-1.33); O2 Saturation % 99.6 % (94-98); PCO2 40 mmHg (35-48); PO2 145 mmHg (83-108); Sodium 137 mMOL/L (136-145); pH 7.37 (7.35-7.45)
[2023-10-24 12:49] LABS: Mixed Venous O2 Saturation 79.7 %
[2023-10-24] MEDS: DILAUDID 0.5 MG IV (12:49)
--- NOTE | 2023-10-24 12:51 | PTCARENOTE ---
Pt received from CVOR at 1220; Sedated and intubated at arrival but restless and agitated soon after; NSR rhythm on monitor; VSS; Epicardial V-wires present w/ temporary pacemaker turned off; Friction rub present; DP and radial pulses present; Lungs
clear; ETT size 8 positioned and secured at 25 cm right lip; Ventilator settings SIMV 14/550/5/5 FiO2 100%; CTx2 to -20 cm wall suction draining bloody drainage - no air leak, tidaling, or crepitus noted; Hypoactive BS; Jeff catheter in place
draining clear, yellow urine; Groin puncture site approximated and CDI, Sternal Midline Incision approximated and CDI, right leg or arm wrapped in Storm wrap - CDI; A-line in left radial artery, [place] present in right Cordis - all lines zeroed and
level; PIVx1; Levo/insulin/precedex infusing - see nursing flowsheets for further details; Versed given for agitation, IV Dilaudid given for pain, LR Bolus x1 given; See nursing documentation for further details.
[2023-10-24] MEDS: LR 250 ML IV ×2 (12:53→23:39)
[2023-10-24 12:58] LABS: Hematocrit 37.4 % (39.0-52.0); Hemoglobin 13.3 g/dL (13.0-18.0); Platelet Count 109 10^3/uL (130-400)
[2023-10-24 13:02] LABS: INR 1.24; PT 15.7 Sec (11.4-14.6)
--- NOTE | 2023-10-24 13:03 | W.PN.INTV ---
Today's Communication / Plan
Recommendations
Wean ventilator per protocol
Follow hemoglobin, blood sugars
Wean pressors as able, follow blood pressures
Anticipate extubation later today
Will follow
Assessment
-
63-year-old male who presents with lpo-ti-nmgqcxvi cardiac arrest while at the gym, admitted to [facility], catheterization showed multivessel coronary disease, eventually transferred to [facility], 10/19. He is now status post CABG
10/24/2023
S/p CABG x 3 on 10/23
Cardiac arrest status post CPR: Out of the hospital.
Admitted 10/20/2023, transfer from [facility]
Three-vessel coronary artery disease
Left heart catheterization: Multivessel coronary artery disease 10/20/[address] Mino Chauhan at [facility]
Never smoker
No prior history of medical problems-does not take any outpatient medication.
Assessment and plan:
At this time complication is critically ill but stable
Waking up from anesthesia, remains on volume cycle ventilation
ABG with adequate ventilation and oxygenation. Postoperative chest x-ray unremarkable.
Hemoglobin 13.3 postoperatively
EKG unremarkable with nonspecific ST changes
Moving forward
Continue with management per CT surgery
Patient with marginal blood pressure, received additional sedation for ventilator dyssynchrony.
IV fluid boluses, pressors as needed
Patient without any significant prior medical history
Anticipate extubation later today
Follow hemoglobin, urine output, blood sugars
Head of bed elevated postextubation
Aspiration precautions
DVT prophylaxis per CT surgery protocol
Reviewed with critical care nursing
Will follow
TCCT 31 min
Subjective Dataa
Subjective Data
Date of Service:
Date of Service: October 24, 2023
Subjective:
Patient is status post CABG x3. Chest tube in place. Patient sedated on volume-cycled ventilation
Objective Data
Data Reviewed
Vital Signs / I&O / Oxygen:
Vital Signs
Temp Pulse Resp BP Pulse Ox
98.1 F 105 18 139/90 99
10/24/23 06:07 10/24/23 06:06 10/24/23 06:07 10/24/23 06:06 10/24/23 12:20
Intake and Output
10/23/23 10/24/23 10/25/23
06:59 06:59 06:59
Intake Total 960 / 960 600 / 600 0 / 0
Output Total 0 / 0
Balance 960 / 960 600 / 600 0 / 0
SaO2 [SIMV] 99
SaO2 96
Physical Exam
General: Comfortable and Other (IJ, chest tube, A-line)
HEENT: Normocephalic and Anicteric
Cardiovascular: S1-S2, Regular Rhythm, Murmur (n) and Rub (n)
Respiratory: Wheeze (n), Crackles (n), Rhonchi (n) and Non-Labored Respirations
GI: Soft, Non Distended and Non Tender
Neurology: Other (Sedated but moving all extremities)
Skin: Cyanosis (n) and Rash (n)
Labs/Micro/Reports
Laboratory Results
10/24/23 10/24/23
06:09 12:26
APTT 61.9 H
pH 7.37
pCO2 40
pO2 145 H
HCO3 23.1
O2 Delivery Level
[2023-10-24 13:23] LABS: Glucose - Point of Care 125 mg/dl (70-99)
--- NOTE | 2023-10-24 13:25 | W.PN.CARDCBS ---
Addendum entered and electronically signed by Fawn Knight MD 10/24/23 15:40:
I saw and examined the patient.
The Employee Health Rn's note was reviewed and I agree with the note.
Comment: Stable status post CABG x 3 and left atrial appendage clip for exclusion.
Continue usual postop care.
Currently extubated.
Tubes in place.
His is at the bedside
Telemetry stable. EKG stable. Continue to follow.
Original Note:
Today's Communication / Plan
-
continue post op care
Impression / Plan
-
IMPRESSION:
-Gle-ty-usazcvbt cardiac arrest with AED shock x 2 and CPR
-Multivessel coronary artery disease by coronary angiography
-Segmental wall motion abnormalities on echo with ejection fraction 50%
-s/p CABG x3 BLANCO to diag/LAD, Ao-SVG-PDA, MATILDA clip 10/24/23
-Hyperlipidemia
-Aortic valve sclerosis
-Rib pain
Carotid ultrasound 10/20/2023: Soft plaque is identified in the bilateral common carotid arteries and bilateral carotid bulbs. Carotid velocity measurements bilaterally are consistent with less than 50% internal carotid artery stenosis. Vertebral
artery flow is antegrade bilaterally.
Echocardiogram 09/23/2023 (performed at [place]): Technically difficult study. Ejection fraction 55% with likely hypokinesis of the anterior septum, distal septum and apex. Thickened aortic valve predominantly noncoronary cusp likely trileaflet.
In parasternal long axis view thickening appears more prominent. Flow near the mitral valve. May be mitral regurgitation.
Echocardiogram ([facility]) 10/22/2023: Normal left ventricular size. LVEF 50%. Hypokinetic - septum, brent-septal, anterior wall and apex. Mild LVH. Normal RV. Mild MR. Aortic valve sclerosis. Trace TR. PA pressure 25 to 30 mmHg.
RECOMMENDATION:
-Swa-ki-hnvxplnt arrest resuscitated at [facility] with AED shock x 2 and CPR
-Peak troponin 0.438.
-Cardiac catheterization with multivessel coronary artery disease.
-s/p CABG x3 BLANCO to diag/LAD, Ao-SVG-PDA, MATILDA clip 10/24/23
-post op EKG SR with anterior T wave inversion
-with some agitation coming out of surgery. continue sedation
-on levo @5, insulin @2. wean as able
-hgb 13.3
-continue asa, statin, BB. eventual plavix when ok per surgery
-d/w nursing
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
Subjective
Date of Service: October 24, 2023
intubated, sedated
Objective
Labs:
Labs
Hgb 13.3 g/dL (13.0-18.0) 10/24/23 12:26
Hct 37.4 % (39.0-52.0) L 10/24/23 12:26
Plt Count 109 10^3/uL (130-400) L D 10/24/23 12:26
PT 14.4 Sec (11.4-14.6) 10/20/23 14:11
INR 1.14 10/20/23 14:11
APTT 61.9 Sec (23.4-35.0) H 10/24/23 06:09
Sodium 139 mmol/L (135-145) 10/23/23 03:34
Potassium 4.0 mmol/L (3.5-5.1) 10/23/23 03:34
BUN 12 mg/dl (9-20) 10/23/23 03:34
Creatinine 0.8 mg/dL (0.7-1.3) 10/23/23 03:34
Glucose 102 mg/dl (70-99) H 10/23/23 03:34
Vital Signs and I&O:
Vital Signs
Temp Pulse Resp BP Pulse Ox
98.6 F 84 15 97/68 99
10/24/23 13:00 10/24/23 13:10 10/24/23 13:10 10/24/23 13:00 10/24/23 13:10
Vital Signs
Temp Pulse Resp BP Pulse Ox
98.6 F 84 15 97/68 99
10/24/23 13:00 10/24/23 13:10 10/24/23 13:10 10/24/23 13:00 10/24/23 13:10
Intake & Output
10/22/23 10/23/23 10/24/23 10/25/23
07:59 07:59 07:59 07:59
Intake Total 187 / 187 960 / 960 600 / 600 366.1 / 366.1
Output Total 1000 / 1000 265 / 265
Balance -813 / -813 960 / 960 600 / 600 101.1 / 101.1
Physical Exam
Physical Exam
GEN: No distress, intubated, sedated
HEENT: supple, mmm
LUNGS: CTA B/L, no wheezes/rales
CV: Reg, S1/S2, no murmur
EXT: No cyanosis, clubbing, edema
NEURO: Gross non-focal
SKIN: Warm, pink, dry. No rash. Sternotomy dressing c/d/i
[2023-10-24 13:36] LABS: Blood Urea Nitrogen 12 mg/dl (9-20); Estimated Creatinine Clearance 95 ml/min; Glucose 101 mg/dl (70-99); Magnesium 2.3 mg/dl (1.6-2.3)
--- NOTE | 2023-10-24 13:48 | PTCARENOTE ---
RT in room and pt placed on CPAP at 1345. ABG's due at 1415
[2023-10-24 13:58] LABS: Glucose - Point of Care 130 mg/dl (70-99)
[2023-10-24] MEDS: ANCEF 10 IV ×2 (14:26)
[2023-10-24] MEDS: TYLENOL PO (14:26)
[2023-10-24] MEDS: NSS 500 IV (14:26)
[2023-10-24 14:31] LABS: B.E. -2.9 mmol/L; HCO3 20.9 mmol/L (21-28); Ionized Calcium 1.15 mMOL/L (1.15-1.33); O2 Saturation % 99.7 % (94-98); PCO2 33 mmHg (35-48); PO2 115 mmHg (83-108); Potassium 4.1 mMOL/L (3.5-5.1); Sodium 135 mMOL/L (136-145); pH 7.41 (7.35-7.45)
--- NOTE | 2023-10-24 14:40 | PTCARENOTE ---
ABG's reviewed; RT at bedside; Pt extubated at 1440; Pt placed on 6L NC.
[2023-10-24] MEDS: CALCIUM CHLORIDE 10% SYRINGE 50 ML IV (14:57)
[2023-10-24] MEDS: CALCIUM CHLORIDE 10% SYRINGE 50 MG IV (14:57)
[2023-10-24 15:06] LABS: Glucose - Point of Care 104 mg/dl (70-99)
[2023-10-24 16:09] LABS: Glucose - Point of Care 116 mg/dl (70-99)
[2023-10-24 16:16] LABS: Hematocrit 37.7 % (39.0-52.0); Hemoglobin 13.7 g/dL (13.0-18.0); Platelet Count 130 10^3/uL (130-400)
[2023-10-24] MEDS: LOW STRENGTH ASPIRIN 81 MG PO (16:38)
[2023-10-24 17:05] LABS: Glucose - Point of Care 99 mg/dl (70-99)
[2023-10-24] MEDS: LIPITOR 80 MG PO (17:22)
[2023-10-24] MEDS: NEURONTIN 100 MG PO ×2 (17:22→21:04)
[2023-10-24] MEDS: PACERONE 200 MG PO (17:22)
[2023-10-24 19:00] LABS: Glucose - Point of Care 107 mg/dl (70-99)
[2023-10-24] MEDS: SODIUM BICARBONATE 50 MEQ IV ×2 (19:20→23:39)
[2023-10-24] MEDS: ANCEF 5 IV (19:20)
--- NOTE | 2023-10-24 19:35 | PTCARENOTE ---
iCal repleted x1 earlier at 1457; IV Sodium BiCarb ordered and given at 1920; Levo still infusing at 5 mcg/min - unable to wean after IV Sodium Bicarb; CVPA Ed B. notified at bedside - additional calcium chloride ordered; Oxygen weaned to 2L NC -
SpO2 92-94%; IS 1000 ml
[2023-10-24] MEDS: CALCIUM CHLORIDE 10% SYRINGE 60 MG IV (20:21)
[2023-10-24] MEDS: LEVOPHED 250 IV (20:25)
[2023-10-24 21:02] LABS: Glucose - Point of Care 103 mg/dl (70-99)
[2023-10-24] MEDS: SENOKOT-S 1 TABLET PO (21:04)
[2023-10-24] MEDS: TYLENOL 1000 MG PO (21:04)
[2023-10-24 23:18] LABS: Glucose - Point of Care 113 mg/dl (70-99)
[2023-10-25] VITALS (26 sets, daily range): BP systolic 91–145; BP diastolic 60–84; PULSE 79; O2SAT 95–97; BMI 26.8
--- NOTE | 2023-10-25 | PTCARENOTE ---
Report received from MICHELLE Graf. Walking rounds done. On Levophed gtt at 4 mcg/min. Orders received from PA to give LR 250 mls bolus and Sodium Bicarbonate 50 mcg IV. Orders followed. See MAR. Glycemic protocol followed.
Pt awake, alert, oriented x 4. Speech clear. Pt on 4 L/NC. Sats 89-90%. O2 increased to 6 L/NC. CDB and IS done with pt. IS peak 1000 mls. Pt c/o 6/10 sternal pain. Dilaudid 0.25 mg IV given at 0025. O2 Sats now 90-94%. Pt with nonproductive cough
at times.
Audible heart tones. + pericardial rub. Pt in SR. V wire attached to temp PM. PM not on. Belly soft, nontender. CT x 2 to -20 cm suction. see flowsheets. Normoactive BS x 4. Jeff to gravity drain. Hourly UO recorded. Urine clear, yellow.
For pulse and wound assessments, see flowsheets.
Ongoing plan of care.
[2023-10-25] MEDS: DILAUDID 0.25 MG IV ×2 (00:25→04:45)
[2023-10-25 01:19] LABS: Glucose - Point of Care 103 mg/dl (70-99)
--- NOTE | 2023-10-25 01:40 | W.PN.CT ---
Today's Communication / Plan
-
Plan:
-No major issues overnight. Hemodynamically and neurologically intact
-Successfully extubated on 10/24/23 @ 2225
-Noted to be hypoxic post extubation likely d/t shunting from pain/discomfort, requiring midflow supplemental O2 support
-Weaned off Levophed overnight, remains on insulin gtt per protocol
-U/O since OR 830 mL
-Monitor chest tube output: R pleural + med 180/580, will likely d/c med and bulb pleural
-Cont. current meds (ASA, Lipitor; will add Plavix; Amiodarone and Lopressor were held last night)
-D/C A-line/SLIC this AM @ 0600
-D/C'd Jeff catheter @ 0600
-Transfer to [facility] phase
-Maintain cordis
-Maintain temporary pw (will cut before d/c home), will insulate today
-Wean off of O2 as tolerated
-Encourage use of IS
-OOB into chair/Ambulate
Assessment / Plan
-
Assessment:
S/P Cabg x 3 on pump (Velasco - diag/lad, ao- svg- pda)/REVH /MATILDA clip #35/ RSF, by Dr. Land, 10/24/23, pod#1
-Out of hospital cardiac arrest S/p CPR and AED x 2
-Severe 3v CAD/30% distal LM
-Hyperlipidemia
-LVEF 50-55% per intraop AHSAN
-Preop small left pleural effusion
-S/P R inguinal herniorrhaphy
-Acute postop blood loss/Anemia (stable without transfusion)
-Acute postop thrombocytopenia (stable without active bleed)
-Acute postop atelectasis
-Acute postop hypovolemia with subsequent hypervolemia
-Acute postop hypoxemia likely d/t shunting from pain/discomfort
-Acute postop probable pericarditis, + rub
Discussed patient care with: Cardiology, Nursing, Respiratory Therapy, Pharmacy and Care Team
Subjective
Procedure
Cabg x 3 on pump (Velasco - diag/lad, ao- svg- pda)/REVH /MATILDA clip #35/ RSF, by Dr. Land, 10/24/23
-
Date of Service: October 25, 2023
Objective Data
-
PT 15.7 Sec (11.4-14.6) H 10/24/23 12:26
INR 1.24 10/24/23 12:26
APTT 38.0 Sec (23.4-35.0) H 10/24/23 12:26
Vital Signs
Vital Signs
Temp Pulse Resp BP Pulse Ox
100 F 80 21 109/64 92
10/25/23 01:00 10/25/23 01:15 10/25/23 01:15 10/25/23 01:00 10/25/23 01:15
CT Intake/Output/Weight
10/24/23 10/24/23 10/25/23
06:59 18:59 06:59
Intake Total 676.7 / 1416.3 739.6 / 1416.3
Output Total 755 / 1175 420 / 1175
Balance -78.3 / 241.3 319.6 / 241.3
SaO2: 93 (13L MidFlow o2)
Physical Exam
-
General: Awake, Oriented and AOx3
Cardiovascular: Regular rate & rhythm, No Murmurs, Rub (+rub) and No Gallop
Respiratory: Decreased Breath Sounds
Sternum: Stable
Incision: Clean, Dry, Intact and Dressing Intact
Extremities: No Edema
Data Reviewed
-
Lab Results: Results Reviewed
Medications: Active Meds Reviewed
Chest X-Ray: Report Reviewed and Image Reviewed
ECG: Report Reviewed and Image Reviewed
--- NOTE | 2023-10-25 02:00 | PTCARENOTE ---
O2 sats on 6L/NC 90-91%. PA at bedside to examine pt. Order placed for 50% VM. RT called and at bedside to place pt on VM 50%. Sats 90-92%. Pt encouraged to CDB, Do IS. Simethicone given as ordered. Ongoing plan of care and monitoring. Levophed gtt
now at 1 mcg/min.
[2023-10-25] MEDS: MYLICON 80 MG PO (02:14)
[2023-10-25 03:10] LABS: Glucose - Point of Care 104 mg/dl (70-99)
[2023-10-25 03:43] LABS: Hematocrit 34.2 % (39.0-52.0); Hemoglobin 12.3 g/dL (13.0-18.0); Mean Corpuscular Volume 86.1 fL (80.0-94.0); Mean Platelet Volume 10.2 fL (7.4-10.4); Platelet Count 119 10^3/uL (130-400); Red Blood Cell Count 3.97 10^6/uL (4.70-6.10); Red Cell Dist. Width 12.4 % (11.5-14.5); White Blood Cell Count 14.9 10^3/uL (4.8-10.8)
[2023-10-25] MEDS: VENTOLIN NEBULES 2.5 MG INH (03:52)
--- NOTE | 2023-10-25 03:57 | PTCARENOTE ---
Labs drawn and sent. EKG done. Sats 88-90% on 50% VM. RT called to bedside. PA notified. Nebulizer treatment given per order via RT. Add-on lab for pro-BNP. Pt denies increased pain. Denies dyspnea. Denies hx of smoking. Levo gtt off. HOB up to 46
degreeds. CDB and IS encouraged.
[2023-10-25 04:03] LABS: Blood Urea Nitrogen 17 mg/dl (9-20); Calcium 8.8 mg/dl (8.4-10.2); Carbon Dioxide 24 mmol/L (22-30); Chloride 107 mmol/L (98-107); Estimated Creatinine Clearance 107 ml/min; Glucose 106 mg/dl (70-99); Magnesium 1.8 mg/dl (1.6-2.3); Potassium 3.9 mmol/L (3.5-5.1); Sodium 138 mmol/L (135-145); eGFR > 60.00
[2023-10-25 04:30] LABS: NT-proBNP 673 pg/ml
[2023-10-25 04:36] LABS: O2 Saturation % 94.6 % (94-98); PCO2 31 mmHg (35-48); PO2 64 mmHg (83-108); pH 7.46 (7.35-7.45)
[2023-10-25] MEDS: ANCEF 5 IV ×2 (04:43→12:34)
[2023-10-25] MEDS: KCL 50 IV (04:43)
[2023-10-25] MEDS: MAGNESIUM SULFATE 50 IV (05:02)
--- NOTE | 2023-10-25 05:10 | PTCARENOTE ---
ABG drawn, results to PA. 12L/O2 midflow applied. Sats 91%. Dilaudid 0.25 mg IV for 6/10 pain to sternum.
[2023-10-25 05:14] LABS: Glucose - Point of Care 105 mg/dl (70-99)
[2023-10-25] MEDS: TYLENOL 1000 MG PO ×3 (07:00→21:35)
[2023-10-25] MEDS: ROXICODONE 2.5 MG PO (07:00)
--- NOTE | 2023-10-25 07:15 | PTCARENOTE ---
[place] catheter to [facility] cordis d/c'ed per protocol. New dressing applied with Biopatch. Jeff d/c'ed at 0620. L radial A line d/c'ed per protocol.
Roxicodone 2.5 mg po given with 0600 Tylenol. Pt helped up to sitting, Transient dizziness that subsided, BP taken-See flowsheet, then helped to standing scale to be weighed. Pt helped into recliner chair. L lower-lateral back with ecchymoses noted.
BP in chair was 110/75. Remains on 12l/o2/midflow for now. Report to MICHELLE Simpson this am.
--- NOTE | 2023-10-25 07:26 | W.PN.ANS.POP ---
Anesthesia Post Operative
- Anesthesia Post Op Note
Vital Signs Stable-See Nursing Note: Yes
Airway Patent: Yes
Adequate Pain Control: Yes
Change in Mental Status: No
Current Postoperative Nausea & Vomiting: No
Anesthesia Complications: No
General Anesthetic Recall: No
Unplanned Admission: No
Post Op Hydration Adequate: Yes
[2023-10-25 07:27] LABS: Glucose - Point of Care 95 mg/dl (70-99)
--- NOTE | 2023-10-25 07:57 | W.PN.INTV ---
Today's Communication / Plan
Recommendations
Continue to monitor oxygen requirement, presently 97% on 10 L
Chest x-ray with mild left lower lobe atelectasis, continue incentive spirometry
Patient has not required any transfusion
Remains on insulin drip
Once transferred to telemetry, we will sign off. Please call with questions
Assessment
-
63-year-old male who presents with cbd-um-vcltpzua cardiac arrest while at the gym, admitted to [facility], catheterization showed multivessel coronary disease, eventually transferred to [facility], 10/19. He is now status post CABG
10/24/2023
S/p CABG x 3 on 10/23
Cardiac arrest status post CPR: Out of the hospital.
Admitted 10/20/2023, transfer from [facility]
Three-vessel coronary artery disease
Left heart catheterization: Multivessel coronary artery disease 10/20/[address] Mino Chauhan at [facility]
Never smoker
No prior history of medical problems-does not take any outpatient medication.
Assessment and plan:
At this time, patient appears to be comfortable, extubated without difficulty, sitting in chair
No significant splinting on exam
Chest x-ray with mild left lower lobe atelectasis
ABG with adequate ventilation and oxygenation. Postoperative chest x-ray unremarkable.
Hemoglobin stable at 12.3
EKG with changes consistent with pericarditis
Oxygen requirement noted
Moving forward
Continue with management per CT surgery
Colchicine to be started
Remains on insulin drip
Patient without any significant prior medical history
Postextubation oxygen requirement with clear chest exam
Presently 97% on 10 L
Follow hemoglobin, urine output, blood sugars
Head of bed elevated
Aspiration precautions
Incentive spirometry
DVT prophylaxis per CT surgery protocol
Reviewed with critical care nursing
Will follow
Subjective Dataa
Subjective Data
Date of Service:
Date of Service: October 25, 2023
Subjective:
Patient is feeling well. Denies shortness of breath, chest pain. Nausea has since resolved. Sitting in chair, no splinting noted. Oxygen requirement noted postextubation, being weaned throughout the day
Objective Data
Data Reviewed
Vital Signs / I&O / Oxygen:
Vital Signs
Temp Pulse Resp BP Pulse Ox
100.2 F 88 17 110/75 93
10/25/23 06:00 10/25/23 07:45 10/25/23 07:45 10/25/23 07:34 10/25/23 07:22
Intake and Output
10/24/23 10/25/23 10/26/23
06:59 06:59 06:59
Intake Total 600 / 600 1517.3 / 1529.3
Output Total 1465 / 1465
Balance 600 / 600 52.3 / 64.3
SaO2 [CPAP] 98
SaO2 [SIMV] 99
SaO2 93
Nasal Cannula flow liters per 6
minute
Physical Exam
General: Comfortable and Other (Lower extremity bandage in place)
HEENT: Normocephalic and Anicteric
Cardiovascular: S1-S2, Regular Rhythm and Murmur (n)
Respiratory: Wheeze (n), Crackles (n), Rhonchi (n) and Non-Labored Respirations
GI: Soft, Non Distended and Non Tender
Neurology: Awake and Alert
Skin: Cyanosis (n) and Rash (n)
Labs/Micro/Reports
Lab Data
10/25/23 03:26
10/25/23 03:26
Laboratory Results
10/24/23 10/24/23 10/25/23
12:26 14:17 04:19
PT 15.7 H
INR 1.24
APTT 38.0 H
pH 7.37 7.41 7.46 H
pCO2 40 33 L 31 L
pO2 145 H 115 H 64 L
HCO3 23.1 20.9 L 22.0
O2 Delivery Level 50% venti-mask
--- NOTE | 2023-10-25 08:00 | PTCARENOTE ---
pt received from previous RN, oriented. SR on the monitor, HR 80s. +rub. V wire in place, pacer box off. SBP 90-110s. palpable pulses. pt on 12L MF, 90-94% POX. lungs diminished in bases, IS encouraged. RR 20s. CTx2, no air leak or crepitus noted.
pt abdomen s/n, denies n/v. tolerating clears. DTV post Jeff removal. pt OOB to chair w/ assist. 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 R groin puncture MIKE. RLE WALLACE bandage in place. L lateral back ecchymosis, BODY TRIMMER Blanca aware. RIJ cordis
maintained. PIV. insulin gtt running per protocol. see worklist for VS, I&O, and assessment.
[2023-10-25] MEDS: LOW STRENGTH ASPIRIN 81 MG PO (08:20)
[2023-10-25] MEDS: NEURONTIN 100 MG PO ×3 (08:20→21:35)
[2023-10-25] MEDS: PLAVIX 75 MG PO (08:20)
[2023-10-25] MEDS: PROTONIX 40 MG PO (08:20)
[2023-10-25] MEDS: SENOKOT-S 1 TABLET PO ×2 (08:20→20:04)
[2023-10-25] MEDS: BACTROBAN 2% OINTMENT 1 APPLIC NASAL ×2 (08:21→20:03)
[2023-10-25] MEDS: LIDOCAINE 4% PATCH 1 PATCH TOPICAL (08:21)
[2023-10-25] MEDS: TORADOL 15 MG IV (08:21)
[2023-10-25] MEDS: MAGNESIUM OXIDE 500 MG PO ×2 (08:21→20:03)
[2023-10-25 09:22] LABS: Glucose - Point of Care 135 mg/dl (70-99)
[2023-10-25] MEDS: LOPRESSOR 12.5 MG PO (10:52)
[2023-10-25] MEDS: COLCHICINE 0.3 MG PO (10:53)
[2023-10-25 10:57] LABS: Glucose - Point of Care 124 mg/dl (70-99)
--- NOTE | 2023-10-25 11:01 | PTCARENOTE ---
pt placed back to bed. Mediastinal CT dc'd as ordered, L pleural CT placed to bulb as ordered. dressing c/d/i. V wire insulated as ordered. pt OOB to chair w/ minimal assist. IS encouraged. chest PT performed.
--- NOTE | 2023-10-25 11:47 | W.PN.CARDCBS ---
Addendum entered and electronically signed by Salvador Garcia MD 10/25/23 12:28:
I saw and examined the patient.
The Linoleum Printer's note was reviewed and I agree with the note.
Comment:
GEN: No distress, awake, Ox3
HEENT: supple, anicteric, mmm
LUNGS: CTA, no wheezes/rales
CV: Reg, S1/S2, no clear rub
ABD: soft, BS+, NT/ND
EXT: No edema
NEURO: Gross non-focal
SKIN: No rash
Plan:
Overall looks good. Has minimal chest pain. EKG with likely some level of pericarditis. Continue colchicine.
Continue metoprolol, amiodarone, aspirin, Plavix, and atorvastatin.
LVEF at 50%. Continue to monitor on telemetry. With clear reversible cause for cardiac arrest and now revascularization, would likely hold off on ICD therapy. Will discuss with electrophysiology.
Original Note:
Today's Communication / Plan
-
continue post op care
continue colchicine
will discuss need for ICD placement with EP
Impression / Plan
-
IMPRESSION:
-Epe-nv-ifxjugym cardiac arrest with AED shock x 2 and CPR
-Multivessel coronary artery disease by coronary angiography
-Segmental wall motion abnormalities on echo with ejection fraction 50%
-s/p CABG x3 BLANCO to diag/LAD, Ao-SVG-PDA, MATILDA clip 10/24/23
-Hyperlipidemia
-Aortic valve sclerosis
-Rib pain
Carotid ultrasound 10/20/2023: Soft plaque is identified in the bilateral common carotid arteries and bilateral carotid bulbs. Carotid velocity measurements bilaterally are consistent with less than 50% internal carotid artery stenosis. Vertebral
artery flow is antegrade bilaterally.
Echocardiogram 09/23/2023 (performed at [place]): Technically difficult study. Ejection fraction 55% with likely hypokinesis of the anterior septum, distal septum and apex. Thickened aortic valve predominantly noncoronary cusp likely trileaflet.
In parasternal long axis view thickening appears more prominent. Flow near the mitral valve. May be mitral regurgitation.
Echocardiogram ([facility]) 10/22/2023: Normal left ventricular size. LVEF 50%. Hypokinetic - septum, brent-septal, anterior wall and apex. Mild LVH. Normal RV. Mild MR. Aortic valve sclerosis. Trace TR. PA pressure 25 to 30 mmHg.
RECOMMENDATION:
-Otg-mq-mzoxtwqp arrest resuscitated at [facility] with AED shock x 2 and CPR
-Peak troponin 0.438.
-Cardiac catheterization with multivessel coronary artery disease.
-s/p CABG x3 BLANCO to diag/LAD, Ao-SVG-PDA, MATILDA clip 10/24/23
-EKG with evidence of pericarditis. colchicine started today. patient reports improvement in pain
-off pressors. BPs stable
-continue asa, plavix. hgb 12.3
-continue lopressor. amiodarone on hold. in SR upon review of tele. no VT noted
-EF normal by echo. will discuss need for ICD placement with EP.
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
Progress Note - Assembler Product
Subjective
Date of Service: October 25, 2023
feeling well.
Objective
Labs:
10/25/23 03:26
10/25/23 03:26
Labs
Hgb 12.3 g/dL (13.0-18.0) L 10/25/23 03:26
Hct 34.2 % (39.0-52.0) L 10/25/23 03:26
Plt Count 119 10^3/uL (130-400) L 10/25/23 03:26
PT 15.7 Sec (11.4-14.6) H 10/24/23 12:26
INR 1.24 10/24/23 12:26
APTT 38.0 Sec (23.4-35.0) H 10/24/23 12:26
Sodium 138 mmol/L (135-145) 10/25/23 03:26
Potassium 3.9 mmol/L (3.5-5.1) 10/25/23 03:26
BUN 17 mg/dl (9-20) 10/25/23 03:26
Creatinine 0.8 mg/dL (0.7-1.3) 10/25/23 03:26
Glucose 106 mg/dl (70-99) H 10/25/23 03:26
Vital Signs and I&O:
Vital Signs
Temp Pulse Resp BP Pulse Ox
97.3 F 83 20 108/67 92
10/25/23 08:00 10/25/23 11:00 10/25/23 11:00 10/25/23 11:00 10/25/23 11:00
Vital Signs
Temp Pulse Resp BP Pulse Ox
97.3 F 83 20 108/67 92
10/25/23 08:00 10/25/23 11:00 10/25/23 11:00 10/25/23 11:00 10/25/23 11:00
Intake & Output
10/23/23 10/24/23 10/25/23 10/26/23
07:59 07:59 07:59 07:59
Intake Total 960 / 960 600 / 600 1529.3 / 1540.1 47.6 / 47.6
Output Total 1465 / 1485 90 / 90
Balance 960 / 960 600 / 600 64.3 / 55.1 -42.4 / -42.4
Physical Exam
Physical Exam
GEN: No distress, awake, alert, oriented x3
HEENT: supple, anicteric, mmm, eomi
LUNGS: CTA B/L, no wheezes/rales
CV: Reg, S1/S2, no murmur, +rub
EXT: No cyanosis, clubbing. trace edema of B/L LE
NEURO: Gross non-focal
SKIN: Warm, pink, dry. No rash. Sternotomy site c/d/i.
--- NOTE | 2023-10-25 12:05 | PTCARENOTE ---
pt VSS, no changes in assessment. OOB in chair. pt walked in hallway w/ CR. tolerated well.
[2023-10-25 12:20] LABS: Glucose - Point of Care 104 mg/dl (70-99)
[2023-10-25] MEDS: NSS IV (12:29)
[2023-10-25] MEDS: MUCINEX 1200 MG PO ×2 (12:34→20:04)
[2023-10-25] MEDS: ROXICODONE 5 MG PO (13:40)
--- NOTE | 2023-10-25 14:42 | PTCARENOTE ---
insulin gtt dc'd as ordered. RLE WALLACE removed, site approximated. 6L MF, 94% POX. Myla 5 PO given for pain. NATIONAL SALES CONSULTANT aware of L pleural bulb CT output.
--- NOTE | 2023-10-25 16:00 | PTCARENOTE ---
pt VSS, OOB in chair. pt states no urge to void, bladder scanned for 228ml. FIXED INCOME DIRECTOR aware.
[2023-10-25] MEDS: LIPITOR 80 MG PO (17:02)
--- NOTE | 2023-10-25 18:33 | PTCARENOTE ---
pt ambulated in hallway on 2LNC, tolerated well. voided in urinal. OOB in chair.
--- NOTE | 2023-10-25 19:39 | PTCARENOTE ---
assumed care of pt from day shift nurse. pt OOB to chair. AAOx3 NSR per tele HR 90s, +rub, v wire insulated, palpable pulses. pox 90-94% 2L NC, lungs diminished at bases, IS 1000, CT x1 L pleural to bulb suction, +bs, all surgical sites intact, L
lateral back ecchymotic, RIJ cordis intact, PIV intact, plan of care discussed questions encouraged
[2023-10-25] MEDS: LOPRESSOR 25 MG PO (20:03)
--- NOTE | 2023-10-25 23:15 | PTCARENOTE ---
report received from previous RN, assumed care of pt, walking rounds done. pt sleeping. pt AFIB on monitor @ ~2308, HR 140s. CT PA aware, orders received for 5mg Lopressor IVP, Amio bolus, and Amio gtt. pt BP 94/70. pt asymptomatic. B/L radial and
DP pulses palpable. heart tones audible. B/L breath sounds present. POX 93% on 2LNC. IS encouraged. Ct x1 intact to bulb suction, drainage WNL. bowel sounds present. pt voids in urinal without difficulty. RIJ cordis intact w KVO infusing. all
surgical sites stable. see worklist for full assessment, VS, and interventions. pt resting between care.
[2023-10-25] MEDS: LOPRESSOR 5 MG IV (23:16)
[2023-10-25] MEDS: CORDARONE 103 MG IV (23:45)
[2023-10-26] VITALS (10 sets, daily range): BP systolic 86–154; BP diastolic 61–79; PULSE 69; O2SAT 95–98; BMI 27.2
[2023-10-26] MEDS: CORDARONE 518 MG IV (00:20)
--- NOTE | 2023-10-26 00:30 | PTCARENOTE ---
pt received IV Lopressor and Amio bolus. Amio gtt currently infusing. AFIB rate persists 120s-130s. CT PA aware. orders received for 2.5mg Lopressor IVP and 2g IV Magnesium.
[2023-10-26] MEDS: LOPRESSOR 2.5 MG IV (00:44)
[2023-10-26] MEDS: MAGNESIUM SULFATE 50 IV (00:45)
[2023-10-26] MEDS: CORDARONE 103 MG IV (02:16)
--- NOTE | 2023-10-26 03:00 | PTCARENOTE ---
pt converted to NSR @ ~0152, HR 60s-70s. Amio gtt maintained. pt sleeping between care.
[2023-10-26 04:22] LABS: Hematocrit 30.6 % (39.0-52.0); Hemoglobin 11.1 g/dL (13.0-18.0); Mean Corp Hgb Conc. 36.3 g/dL (33.0-37.0); Mean Corpuscular Hgb 32.1 pg (27.0-31.0); Mean Corpuscular Volume 88.4 fL (80.0-94.0); Mean Platelet Volume 11.2 fL (7.4-10.4); Platelet Count 103 10^3/uL (130-400); Red Blood Cell Count 3.46 10^6/uL (4.70-6.10); White Blood Cell Count 12.6 10^3/uL (4.8-10.8)
--- NOTE | 2023-10-26 06:04 | W.PN.CT ---
Addendum entered and electronically signed by Lexus Garza PA-C 10/26/23 11:49:
response to query:
Post op acute hypoxic respiratory failure
Original Note:
Today's Communication / Plan
-
-pod #2
-doing well overall, ambulates in the hallway without difficulty
-drips: Amio 0.5
-new afib 140s at 11:05 am - got iv Lopressor x2, Amio boluses x2, Amio drip, iv Mg- converted to NSR approx 1:50am
-continue po Amio and BB, maintain pw
-CT output: L pleur bulb 40/285 in 02/12 hrs
-current meds (ASA, Plavix, Lipitor, Amio, Colchicine 0.3 qd for pericarditis, Lopressor 25 bid, Protonix)
-BMP pending
-follow platelets - 103 today (119K on 10/24)
-encourage IS, ambulate
Assessment / Plan
-
Assessment:
S/P Cabg x 3 on pump (Velasco - diag/lad, ao- svg- pda)/REVH /MATILDA clip #35/ RSF, by Dr. Land, 10/24/23, pod#2
-Out of hospital cardiac arrest S/p CPR and AED x 2
-Severe 3v CAD/30% distal LM
-Hyperlipidemia
-LVEF 50-55% per intraop AHSAN
-Preop small left pleural effusion
-S/P R inguinal herniorrhaphy
-Acute postop blood loss/Anemia (stable without transfusion)
-Acute postop thrombocytopenia (stable without active bleed)
-Acute postop atelectasis
-Acute postop hypovolemia with subsequent hypervolemia
-Acute postop hypoxemia likely d/t shunting from pain/discomfort
-Acute postop probable pericarditis, + rub
-Acute postop a-fib with RVR 140s- tx with iv Lopressor x2, Amio bous x2, iv Mg, Amio drip- converted to NSR at ~ 1:50 am (2 hr 45 min duration)
Discussed patient care with: Nursing and Care Team
Subjective
Procedure
Cabg x 3 on pump (Velasco - diag/lad, ao- svg- pda)/REVH /MATILDA clip #35/ RSF, by Dr. Land, 10/24/23
-
Date of Service: October 26, 2023
Objective Data
-
PT 15.7 Sec (11.4-14.6) H 10/24/23 12:26
INR 1.24 10/24/23 12:26
APTT 38.0 Sec (23.4-35.0) H 10/24/23 12:26
Vital Signs
Vital Signs
Temp Pulse Resp BP Pulse Ox
98.6 F 127 17 94/70 93
10/25/23 23:10 10/26/23 00:30 10/25/23 23:10 10/25/23 23:16 10/26/23 00:30
CT Intake/Output/Weight
10/25/23 10/25/23 10/26/23
06:59 18:59 06:59
Intake Total 840.6 / 1529.3 121.9 / 365.2 243.3 / 365.2
Output Total 710 / 1465 615 / 645 30 / 645
Balance 130.6 / 64.3 -493.1 / -279.8 213.3 / -279.8
SaO2: 93
Physical Exam
-
General: Awake and AOx3
Cardiovascular: Regular rate & rhythm, No Murmurs and Rub
Respiratory: Decreased Breath Sounds
Sternum: Stable
Incision: Clean, Dry and Intact
Extremities: No Edema (2+ DPs b/l)
Abdomen: soft, nontender, nondistended, + bowel sounds
Data Reviewed
-
Lab Results: Results Reviewed
Medications: Active Meds Reviewed
Chest X-Ray: Report Reviewed and Image Reviewed
ECG: Report Reviewed and Image Reviewed
[2023-10-26] MEDS: TYLENOL 1000 MG PO ×3 (07:13→21:19)
--- NOTE | 2023-10-26 08:00 | PTCARENOTE ---
pt received from previous RN, oriented. SR on the monitor, HR 60s. +rub. V wire in place, pacer box off. SBP 100s. palpable pulses. pt on 2LNC, 90-95% POX. lungs diminished in bases, IS encouraged, 1500ml. CTx1 to bulb. pt abdomen s/n, denies n/v.
tolerating diet. voids. 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 R groin puncture MIKE. RLE incision CONCRETE TRUCK DRIVER, ecchymotic. L lateral back ecchymosis. RIJ cordis maintained. Amiodarone gtt running as ordered. PIV. see worklist for VS, I&O, and
assessment.
[2023-10-26] MEDS: MUCINEX 1200 MG PO ×2 (09:39→20:09)
[2023-10-26] MEDS: PACERONE 200 MG PO ×3 (09:39→21:19)
[2023-10-26] MEDS: LOW STRENGTH ASPIRIN 81 MG PO (09:39)
[2023-10-26] MEDS: LOPRESSOR 25 MG PO ×2 (09:39→20:09)
[2023-10-26] MEDS: PLAVIX 75 MG PO (09:39)
[2023-10-26] MEDS: LIDOCAINE 4% PATCH 1 PATCH TOPICAL (09:39)
[2023-10-26] MEDS: MAGNESIUM OXIDE 500 MG PO ×2 (09:39→20:09)
[2023-10-26] MEDS: PROTONIX 40 MG PO (09:39)
[2023-10-26] MEDS: SENOKOT-S 1 TABLET PO ×2 (09:39→20:09)
[2023-10-26] MEDS: COLCHICINE 0.3 MG PO (09:40)
[2023-10-26] MEDS: BACTROBAN 2% OINTMENT 1 APPLIC NASAL ×2 (09:40→20:09)
[2023-10-26] MEDS: NEURONTIN 100 MG PO ×3 (09:40→21:19)
[2023-10-26 10:08] LABS: Blood Urea Nitrogen 24 mg/dl (9-20); Calcium 8.2 mg/dl (8.4-10.2); Carbon Dioxide 24 mmol/L (22-30); Chloride 99 mmol/L (98-107); Estimated Creatinine Clearance 107 ml/min; Glucose 146 mg/dl (70-99); Magnesium 2.3 mg/dl (1.6-2.3); Potassium 4.5 mmol/L (3.5-5.1); Sodium 132 mmol/L (135-145); eGFR > 60.00
--- NOTE | 2023-10-26 11:11 | PN.CDI ---
CDI
- -
CDI:
Physician Documentation Request
Admit Date: 10/20/23 13:[address] Surgery,
Please review the following and provide your response in the progress notes.
Clinical Indicators:
- 10/23 CABG x 3
- 10/23 RN note 'Pt extubated at 1440; Pt placed on 6L NC'
- 'Oxygen weaned to 2L NC - SpO2 92-94%'
- 10/24 RN note 'O2 sats on 6L/NC 90-91%'
- ABG pCO2 31, HCO3 64
- placed on Ventimask 12L O2
- 10/25 CT Surgery note 'Acute postop hypoxemia likely d/t shunting from pain/discomfort'
Please clarify which of the following accurately represents the patient's respiratory status following surgery:
Acute hypoxic respiratory failure
Acute pulmonary insufficiency (following surgery)
Other
Additional information for Pulmonary Insufficiency:
Consider when patients require care home oxygen therapy postoperatively
Weaned off oxygen initially then requiring supplemental oxygen
No other definitive diagnosis to support the need for oxygen (COPD exac, CHF etc.)
May extend stay or require additional resources; may need home O2
Additional information for Respiratory Failure:
Recognized criteria for Respiratory Failure (Source: [facility] Dec 2012)
ABGs: (1 or more) Symptoms Indicate:
1. p)2 <60 or RA SPO2 <91% on RA 1. Tachypnea, SOB, dyspnea 1. Type as:
2. pCO2 50 and pH <7.35 2. Use of accessory muscles a. Hypoxic
3. pO2 decrease of pCO2 increase by 3. Pallor or cyanosis b. Hypercapnic
10 mmHg from baseline if known 4. Anxiety or restlessness 2. If due to procedure or due to another cause
5. Unable to speak in full sentences
Supplemental O2 of > 40% Intubation is not required
Use of terms such as suspected, likely, concern for, or probable (associated with a specific diagnosis that is being evaluated, monitored, or treated as if it exists) are acceptable and can be coded in the inpatient setting, when documented at the
time of discharge.
Thank you,
Nava Dudley RN
CDI Specialist
Please use your independent medical judgment in providing your response.
--- NOTE | 2023-10-26 11:50 | CM ---
Reviewed chart. Met with Mr. Sarkar to review discharge plans. He states he is feeling well and he has ambulated in the hallway. He states prior to admission he resides with his spouse in a two story home with one step to enter. He states he has
a a full flight of steps to get to bedroom/full bathroom. He states he has a powder room on the first floor. He states prior to admission he was independent with ambulation and adls. He states he does not have any DME in the home. He states he
has a prescription plan and uses [facility]. He states his spouse will be home to assist in his care if needed. We reviewed a home visit by the Cardiothoracic Transitional Care Nurse. He is agreeable to a home visit. Medical work-up in
progress. The discharge plan is to return home with his spouse and a home visit by the Cardiothoracic Transitional Care Nurse when medically stable.
--- NOTE | 2023-10-26 11:57 | W.PN.CARDCBS ---
Addendum entered and electronically signed by Salvador Garcia MD 10/26/23 12:51:
I saw and examined the patient.
The Councilperson's note was reviewed and I agree with the note.
Comment:
GEN: No distress, awake, Ox3
HEENT: supple, anicteric, mmm
LUNGS: CTA, no wheezes/rales
CV: Reg, S1/S2, no murmur
ABD: soft, BS+, NT/ND
EXT: No edema
NEURO: Gross non-focal
SKIN: sternotomy
PLan:
Cont post-op care. Had some afib but now back in sinus. Cont tele
Cont ASA, Plavix, Metoprolol/Amio
Cont Cochicine for pericarditis
Original Note:
Today's Communication / Plan
-
Continue postoperative care
Follow on telemetry
Impression / Plan
-
IMPRESSION:
-Mbt-cb-zjzkkltd cardiac arrest with AED shock x 2 and CPR
-Multivessel coronary artery disease by coronary angiography
-Segmental wall motion abnormalities on echo with ejection fraction 50%
-s/p CABG x3 BLANCO to diag/LAD, Ao-SVG-PDA, MATILDA clip 10/24/23
-Hyperlipidemia
-Aortic valve sclerosis
-Rib pain
Carotid ultrasound 10/20/2023: Soft plaque is identified in the bilateral common carotid arteries and bilateral carotid bulbs. Carotid velocity measurements bilaterally are consistent with less than 50% internal carotid artery stenosis. Vertebral
artery flow is antegrade bilaterally.
Echocardiogram 09/23/2023 (performed at [place]): Technically difficult study. Ejection fraction 55% with likely hypokinesis of the anterior septum, distal septum and apex. Thickened aortic valve predominantly noncoronary cusp likely trileaflet.
In parasternal long axis view thickening appears more prominent. Flow near the mitral valve. May be mitral regurgitation.
Echocardiogram ([facility]) 10/22/2023: Normal left ventricular size. LVEF 50%. Hypokinetic - septum, brent-septal, anterior wall and apex. Mild LVH. Normal RV. Mild MR. Aortic valve sclerosis. Trace TR. PA pressure 25 to 30 mmHg.
RECOMMENDATION:
-Cug-bj-ganmgvos arrest resuscitated at [facility] with AED shock x 2 and CPR
-Peak troponin 0.438.
-Cardiac catheterization with multivessel coronary artery disease.
-s/p CABG x3 BLANCO to diag/LAD, Ao-SVG-PDA, MATILDA clip 10/24/23
-doing well this AM.
-with ~2 hour episode of afib overnight, now maintaining SR. continue BB/amio
-continue asa, plavix. if were to recur with afib, would consider for OAC
-no VT noted on review of tele, in afib with several beats which appear to be consistent with aberrant conduction, however none in SR. will review with EP. EF normal by echo. s/p revascularization.
-continue colchicine for pericarditis
-encouraged OOB/IS
-d/w nursing, CT surgery team. d/w patient and at bedside
Progress Note - Stockroom Associate
Subjective
Date of Service: October 26, 2023
Feeling well. Did not feel A-fib overnight.
Objective
Labs:
10/26/23 04:13
10/26/23 09:45
Labs
Hgb 11.1 g/dL (13.0-18.0) L 10/26/23 04:13
Hct 30.6 % (39.0-52.0) L 10/26/23 04:13
Plt Count 103 10^3/uL (130-400) L 10/26/23 04:13
PT 15.7 Sec (11.4-14.6) H 10/24/23 12:26
INR 1.24 10/24/23 12:26
APTT 38.0 Sec (23.4-35.0) H 10/24/23 12:26
Sodium 132 mmol/L (135-145) L 10/26/23 09:45
Potassium 4.5 mmol/L (3.5-5.1) 10/26/23 09:45
BUN 24 mg/dl (9-20) H 10/26/23 09:45
Creatinine 0.8 mg/dL (0.7-1.3) 10/26/23 09:45
Glucose 146 mg/dl (70-99) H 10/26/23 09:45
Vital Signs and I&O:
Vital Signs
Temp Pulse Resp BP Pulse Ox
98.3 F 59 17 154/71 94
10/26/23 04:54 10/26/23 11:00 10/26/23 04:54 10/26/23 10:05 10/26/23 11:28
Vital Signs
Temp Pulse Resp BP Pulse Ox
98.3 F 59 17 154/71 94
10/26/23 04:54 10/26/23 11:00 10/26/23 04:54 10/26/23 10:05 10/26/23 11:28
Intake & Output
10/24/23 10/25/23 10/26/23 10/27/23
07:59 07:59 07:59 07:59
Intake Total 600 / 600 1529.3 / 1540.1 653.1 / 653.1 53.3 / 53.3
Output Total 1465 / 1485 725 / 725 30 / 30
Balance 600 / 600 64.3 / 55.1 -71.9 / -71.9 23.3 / 23.3
Physical Exam
Physical Exam
GEN: No distress, awake, alert, oriented x3
HEENT: supple, anicteric, mmm, eomi
LUNGS: CTA B/L, no wheezes/rales
CV: Reg, S1/S2, no murmur, +rub
EXT: No cyanosis, clubbing. trace edema of B/L LE
NEURO: Gross non-focal
SKIN: Warm, pink, dry. No rash. Sternotomy site c/d/i.
--- NOTE | 2023-10-26 12:00 | PTCARENOTE ---
pt VSS, pt ambulated in hallway w/ CR. tolerated well, placed back to bed. L pleural CT bulb dc'd, COMMERCIAL REAL ESTATE LENDER aware of output. dressing c/d/i. gown changed, oral hygiene performed, face washed. pt OOB to chair for lunch.
[2023-10-26] MEDS: NSS 500 IV (15:06)
[2023-10-26] MEDS: LIPITOR 80 MG PO (15:07)
--- NOTE | 2023-10-26 15:30 | PTCARENOTE ---
pt VSS, no changes in assessment. amio gtt running as ordered. OOB in chair. RA, 90-94% POX.
--- NOTE | 2023-10-26 19:00 | PTCARENOTE ---
report received from previous RN, assumed care of pt, walking rounds done. pt in chair, AAOx4. pt denies any pain. VSS. NSR on monitor, HR 60s-70s. POX 92% on room air. RIJ cordis intact w Amio gtt infusing @ 0.5mg per protocol. all surgical sites
stable. see worklist for full assessment, VS, and interventions. pt resting comfortably.
[2023-10-27] VITALS (8 sets, daily range): BP systolic 105–131; BP diastolic 62–74; PULSE 59; O2SAT 97–98; BMI 27.2
[2023-10-27] MEDS: MELATONIN 5 MG PO (01:00)
[2023-10-27] MEDS: CORDARONE 103 MG IV (03:08)
[2023-10-27] MEDS: CORDARONE 518 MG IV (04:00)
--- NOTE | 2023-10-27 04:00 | PTCARENOTE ---
pt had intermittent AFIB starting ~0245. CT PA aware, orders received for Amio bolus and gtt. Amio bolus given @ ~0300, Amio gtt initiated @ ~0400.
--- NOTE | 2023-10-27 05:45 | PTCARENOTE ---
pt has been in a NSR since ~0330, HR 60s. POX 94% on room air. all surgical sites stable. RIJ cordis maintained, Amio gtt infusing. AM labs drawn and sent. pt resting comfortably.
[2023-10-27] MEDS: TYLENOL PO ×2 (05:54→14:33)
[2023-10-27 06:18] LABS: Blood Urea Nitrogen 18 mg/dl (9-20); Calcium 8.2 mg/dl (8.4-10.2); Carbon Dioxide 23 mmol/L (22-30); Chloride 100 mmol/L (98-107); Estimated Creatinine Clearance 107 ml/min; Glucose 111 mg/dl (70-99); Sodium 134 mmol/L (135-145); eGFR > 60.00
[2023-10-27 06:19] LABS: Hematocrit 32.4 % (39.0-52.0); Hemoglobin 11.5 g/dL (13.0-18.0); Mean Corp Hgb Conc. 35.5 g/dL (33.0-37.0); Mean Corpuscular Hgb 31.3 pg (27.0-31.0); Mean Corpuscular Volume 88.3 fL (80.0-94.0); Mean Platelet Volume 11.4 fL (7.4-10.4); Platelet Count 115 10^3/uL (130-400); Red Blood Cell Count 3.67 10^6/uL (4.70-6.10); Red Cell Dist. Width 12.8 % (11.5-14.5); White Blood Cell Count 12.9 10^3/uL (4.8-10.8)
--- NOTE | 2023-10-27 06:48 | W.PN.CT ---
Today's Communication / Plan
-
-pod #3
-doing well overall, ambulates in hallways
-in and out of a-fib @ 2:30 am (2nd episode)- gave Amio bolus and continued drip
-appreciate Cardiology input re: a-fib
-current meds (ASA, Plavix, Amio, Lopressor 25 bid, Lipitor, Colchicine for pericarditis, Mucinex, Protonix)
-encourage IS, OOB, ambulate
Assessment / Plan
-
Assessment:
S/P Cabg x 3 on pump (Velasco - diag/lad, ao- svg- pda)/REVH /MATILDA clip #35/ RSF, by Dr. Land, 10/24/23, pod#3
-Out of hospital cardiac arrest S/p CPR and AED x 2
-Severe 3v CAD/30% distal LM
-Hyperlipidemia
-LVEF 50-55% per intraop AHSAN
-Preop small left pleural effusion
-S/P R inguinal herniorrhaphy
-Acute postop blood loss/Anemia (stable without transfusion)
-Acute postop thrombocytopenia (stable without active bleed)
-Acute postop atelectasis
-Acute postop hypovolemia with subsequent hypervolemia
-Acute postop hypoxemia likely d/t shunting from pain/discomfort
-Acute postop probable pericarditis, + rub
-Acute postop a-fib with RVR 140s- tx with iv Lopressor x2, Amio bous x2, iv Mg, Amio drip- converted to NSR at ~ 1:50 am (2 hr 45 min duration).
-2nd episode of afib low 100s on 10/26 at 2:30am- tx w/ Amio bolus and drip
Discussed patient care with: Nursing and Care Team
Subjective
Procedure
Cabg x 3 on pump (Velasco - diag/lad, ao- svg- pda)/REVH /MATILDA clip #35/ RSF, by Dr. Land, 10/24/23
-
Date of Service: October 27, 2023
Objective Data
-
PT 15.7 Sec (11.4-14.6) H 10/24/23 12:26
INR 1.24 10/24/23 12:26
APTT 38.0 Sec (23.4-35.0) H 10/24/23 12:26
Vital Signs
Vital Signs
Temp Pulse Resp BP Pulse Ox
98.6 F 59 17 102/63 92
10/26/23 20:09 10/26/23 23:00 10/26/23 20:09 10/26/23 22:53 10/26/23 20:09
CT Intake/Output/Weight
10/26/23 10/26/23 10/27/23
06:59 18:59 06:59
Intake Total 516.5 / 638.4 246.6 / 353.4 106.8 / 353.4
Output Total 40 / 655 700 / 700
Balance 476.5 / -16.6 -453.4 / -346.6 106.8 / -346.6
SaO2: 92
Physical Exam
-
General: Awake and AOx3
Cardiovascular: Regular rate & rhythm, No Murmurs and No Rub
Respiratory: Clear
Sternum: Stable
Incision: Clean, Dry and Intact
Extremities: No Edema
Data Reviewed
-
Lab Results: Results Reviewed
Medications: Active Meds Reviewed
Chest X-Ray: Report Reviewed and Image Reviewed
ECG: Report Reviewed and Image Reviewed
--- NOTE | 2023-10-27 07:00 | PTCARENOTE ---
Bedside walking rounds report received. Patient seen on rounds resting in bed. Assisted oob to chair. Amio gtt infusing per protocol via right IJ cordis: 1 mg/min (33.3ml/hr). NSR on monitor. No verbalized pain. Plan to assess response to amio
infusion and ambulate. See flowrecord for remaining assessments.
[2023-10-27] MEDS: NEURONTIN 100 MG PO ×2 (07:54→16:05)
[2023-10-27] MEDS: PLAVIX 75 MG PO (07:54)
[2023-10-27] MEDS: LOPRESSOR 25 MG PO (07:54)
[2023-10-27] MEDS: PACERONE 200 MG PO ×2 (07:54→16:04)
[2023-10-27] MEDS: PROTONIX 40 MG PO (07:56)
[2023-10-27] MEDS: SENOKOT-S PO (07:56)
[2023-10-27] MEDS: MUCINEX 1200 MG PO (07:56)
[2023-10-27] MEDS: BACTROBAN 2% OINTMENT 1 APPLIC NASAL (07:56)
[2023-10-27] MEDS: MAGNESIUM OXIDE 500 MG PO (07:57)
[2023-10-27] MEDS: LOW STRENGTH ASPIRIN 81 MG PO (07:57)
[2023-10-27] MEDS: LIDOCAINE 4% PATCH TOPICAL (07:59)
[2023-10-27] MEDS: COLCHICINE 0.3 MG PO (08:00)
--- NOTE | 2023-10-27 10:52 | W.DCSUMMARY ---
Discharge Summary
Discharge Data
Date of Admission: 10/20/23
Date of Discharge: 10/27/23
Total time spent discharging patient (in min): 40
-
Pending Results: No
Hospital Course
Primary care physician:
None
Outpatient back pad inspector:
Dr. Ramos
Inpatient consultants:
DCA, camp attendant
Procedures:
1. Coronary artery bypass grafting x3 (BLANCO-Diag/LAD, Ao- SVG- PDA) LAAC #35
Primary Diagnosis:
1. Multivessel Coronary Artery Disease
Secondary Diagnoses:
-Out of hospital cardiac arrest
-Hyperlipidemia
-Acute postop blood loss/Anemia (stable without transfusion)
-Acute postop thrombocytopenia (stable without active bleed)
-Acute postop atelectasis
-Acute postop hypovolemia with subsequent hypervolemia
-Acute postop hypoxemia likely d/t shunting from pain/discomfort
-Acute postop probable pericarditis, + rub
-Acute postop atrial fibrillation
HPI: 63-year-old male suffered out of hospital cardiac arrest on 10/20/23. Immediate high-quality bystander CPR performed (by emergency room physician) and AED defibrillation x 2 with subsequent ROSC. Transported to [facility]
where he underwent a non-contrast Head CT with no acute intracranial findings and a cardiac cath that revealed multivessel disease. Patient was treated with IV heparin and aspirin and transferred to [facility] CVICU.
Hospital course: Patient was transferred from [facility] to [facility] on 10/19. Preoperative workup was started and was taken to the OR with Dr. Land on 10/23. Patient was extubated on postop day 0 and Precedex was turned off.
Overnight patient's Levophed was weaned off. On 10/24 postoperative day #1 mediastinal chest tube was discontinued and pleural chest tubes were bulb. Jeff catheter was removed without issue. EKG showed diffuse ST segment elevation indicative of
pericarditis and patient was started on colchicine and Toradol. Patient's Lopressor was uptitrated to 25 mg twice daily, and oxygen requirements were weaned down to 2 L nasal cannula. On 10/25 postoperative day #2, patient ambulated without issue.
Overnight patient converted to atrial fibrillation and was given amnio boluses and Lopressor pushes. After 2-1/2 hours patient converted back into sinus rhythm. Remaining pleural chest tubes were removed. After 24 hours of the amiodarone infusion
patient was transition to oral dosing. However shortly after patient converted back into atrial fibrillation and was rebolused with Amio and Amio infusion was continued. On 10/26 postoperative day #3, patient remained in sinus rhythm. After
discussion with cardiology patient will be started on Eliquis in 2 weeks. Patient will be on Plavix for 2 weeks until Eliquis is started. 2 view chest x-ray remained stable. Patient was deemed stable for discharge.
Home medication changes:
see below
Discharge Plan
-
Patient Disposition: Home (Routine Discharge)
Discharge Diagnosis/Procedures: CABG
Condition: Good
Diet: Low Cholesterol and Low Sodium
Activity: No strenuous activity
Driving Restrictions: Not until seen by your Dr
Bathing Restrictions: OK to Shower
Other Services: Cardiac Rehab
Specialty Instructions: Weigh Daily- Call MD for wt gain/loss 3 lbs overnight/5 lbs in 1 week
Activity Restrictions/Additional Instructions:
ACTIVITY:
-No strenuous activity: no heavy lifting, pushing, pulling anything over 15 pounds for one month
-continue to use stairs as tolerated
DRIVING RESTRICTIONS:
-No driving for one month or until approved by your surgeon
WOUND CARE:
-Shower daily. Use soap & water.
-No lotions, creams or powders on incision area.
DIET:
-continue a low fat/low cholesterol diet.
-IF you are diabetic, continue carb controlled diet.
CARDIAC REHAB:
-Please make appointment to start in 5-6 weeks with your local hospital program. (See Cardiac Rehabilitation Discharge Booklet).
SPECIALTY INSTRUCTIONS:
-Weigh yourself daily. Call your physician for any weight gain/loss of 3 lbs overnight or 5 lbs in one week.
-REPORT any clicking noise or uneven appearance of your sternum to your surgeon immediately.
-If you smoke, you are instructed to quit. The [place] smoking hotline phone number is [phone]
Referrals:
CT Transitional Care Nurse [Outside] - in one to two days
(
The Cardiothoracic Transitional Care Nurse will call you to set up a visit in 1-2 days.)
[facility] [Outside] - 11/29/23 8:30 am
(Cardiac Rehab Orientation and First Exercise appointment is on Wednesday November 29, 2023 at 8:30 AM.
The Cardiac Rehab gym is located on the first floor of the [facility]ovascular [facility].)
Ignacio Ramos MD [Non-Admitting Privileges] - 12/05/23 11:10 am
Dariusz Land MD [Active] - 11/20/23 9:45 am
UNKNOWN,NO INTERVIEW [Family Provider] -
Additional Discharge Medication Instructions: Continue plavix for 2 weeks and then start your eliquis; Continue your Aspirin
You will be on amiodarone 400mg twice a day for 2 weeks and then 200mg daily
Only continue colchine for 30 days
Prescriptions:
New
clopidogrel 75 mg Tablet
75 mg PO DAILY 14 Days Qty: 14 0RF
amiodarone 400 mg tablet
400 mg PO BID 14 Days Qty: 28 0RF
atorvastatin 80 mg Tablet
80 mg PO QPM Qty: 60 0RF
colchicine 0.6 mg Tablet
0.3 mg PO DAILY Qty: 30 0RF
acetaminophen 325 mg Tablet
650 mg PO Q6HPRN PRN (Reason: mild pain,headache,temp >101F ) Qty: 1 0RF
pantoprazole 40 mg Tablet,Delayed Release (Dr/Ec)
40 mg PO DAILY Qty: 90 2RF
aspirin 81 mg Tablet,Chewable
81 mg PO DAILY Qty: 0 0RF
gabapentin 100 mg Capsule
100 mg PO TID Qty: 30 0RF
oxycodone 5 mg Tablet
5 mg PO Q6HPRN PRN (Reason: severe pain) Qty: 10 0RF
metoprolol tartrate 25 mg Tablet
25 mg PO Q12 Qty: 90 0RF
Eliquis 5 mg tablet
5 mg PO BID Qty: 60 0RF
Rx Instructions:
PLEASE START THIS MEDICATION ON 11/09
amiodarone 200 mg tablet
200 mg PO DAILY Qty: 60 0RF
Discharge Orders:
Discharge Patient (As Directed); Ordered 10/27/23
Ordered By: Nubia Russell
Care Plan Goals
Care Plan Goals:
Problem: Readiness for enhanced knowledge related to diagnosis and treatment plan
Goal: Understand your diagnosis and treatment plan needs, including medications if applicable.
Instructions: Know your diagnosis, underlying causes and treatment plan options, including medications if applicable. Consult with your health care team to learn about your diagnosis and treatment plan, including medications if applicable.
Discharge Date and Time
Print Language: MALTESE
[2023-10-27] MEDS: NSS IV (10:57)
--- NOTE | 2023-10-27 11:13 | CM ---
dc plans remain home when medically stable with f/u visit from the ct transitional care nurse.
--- NOTE | 2023-10-27 11:30 | PTCARENOTE ---
No acute changes. Assisted patient back to bed. Right IJ cordis sutures dc and cordis catheter dc. Sterile vasogauze plus dsd over same
--- NOTE | 2023-10-27 11:49 | W.PN.CARDCBS ---
Addendum entered and electronically signed by Roge Quinteros MD 10/27/23 16:09:
I saw and examined the patient.
The FLOWERS SALESPERSON or PA's note was reviewed and I agree with the note.
Comment: General: Well developed, well nourished in NAD.
Neck: Supple, no JVD, HJR, carotids +2 B/L, no bruits bilaterally.
Heart: Non displaced PMI, RRR, no murmurs, No S3, S4, no rubs.
Lungs: Scattered rhonchi
Sternal dressings noted
Extremities: No clubbing, cyanosis or edema bilaterally.
Neuro: Grossly nonfocal, awake, alert and oriented x3.
Stable cardiology status for discharge. Had 1 hour of A-fib earlier this morning. Discussed with CT surgery to hold off on anticoagulation for now. Anticoagulation would not be considered until least 2 weeks after surgery. Patient is status post
left atrial appendage clip as well. Might consider outpatient monitoring. Patient will follow-up with ATC. Discussed with at bedside as well as CT surgery
Original Note:
Today's Communication / Plan
-
continue BB/amio.
OAC when ok per surgical team. currently on asa, plavix
plan for DC today
Impression / Plan
-
IMPRESSION:
-Obs-pn-otgbixhb cardiac arrest with AED shock x 2 and CPR
-Multivessel coronary artery disease by coronary angiography
-Segmental wall motion abnormalities on echo with ejection fraction 50%
-s/p CABG x3 BLANCO to diag/LAD, Ao-SVG-PDA, MATILDA clip 10/24/23
-Hyperlipidemia
-Aortic valve sclerosis
-Rib pain
Carotid ultrasound 10/20/2023: Soft plaque is identified in the bilateral common carotid arteries and bilateral carotid bulbs. Carotid velocity measurements bilaterally are consistent with less than 50% internal carotid artery stenosis. Vertebral
artery flow is antegrade bilaterally.
Echocardiogram 09/23/2023 (performed at [place]): Technically difficult study. Ejection fraction 55% with likely hypokinesis of the anterior septum, distal septum and apex. Thickened aortic valve predominantly noncoronary cusp likely trileaflet.
In parasternal long axis view thickening appears more prominent. Flow near the mitral valve. May be mitral regurgitation.
Echocardiogram ([facility]) 10/22/2023: Normal left ventricular size. LVEF 50%. Hypokinetic - septum, brent-septal, anterior wall and apex. Mild LVH. Normal RV. Mild MR. Aortic valve sclerosis. Trace TR. PA pressure 25 to 30 mmHg.
RECOMMENDATION:
-Qqy-xz-ptcglljt arrest resuscitated at [facility] with AED shock x 2 and CPR
-Peak troponin 0.438.
-Cardiac catheterization with multivessel coronary artery disease.
-s/p CABG x3 BLANCO to diag/LAD, Ao-SVG-PDA, MATILDA clip 10/24/23
-had approx 1 hour of afib this AM (second episode). will plan for OAC when ok per surgical team. back in SR. continue BB/amiodarone
-tele overnight reviewed, remains without VT. EF normal by echo. s/p revascularization.
-continue colchicine for pericarditis
-encouraged OOB/IS
-planned for DC today
-OP cardiac follow up arranged. initially seen by Dr. Ramos of [facility]
-d/w nursing, CT surgery team.
Progress Note - Acute Care Physician
Subjective
Date of Service: October 27, 2023
feeling well. eager for DC.
Objective
Labs:
10/27/23 05:48
10/27/23 05:48
Labs
Hgb 11.5 g/dL (13.0-18.0) L 10/27/23 05:48
Hct 32.4 % (39.0-52.0) L 10/27/23 05:48
Plt Count 115 10^3/uL (130-400) L 10/27/23 05:48
PT 15.7 Sec (11.4-14.6) H 10/24/23 12:26
INR 1.24 10/24/23 12:26
APTT 38.0 Sec (23.4-35.0) H 10/24/23 12:26
Sodium 134 mmol/L (135-145) L 10/27/23 05:48
Potassium 4.0 mmol/L (3.5-5.1) 10/27/23 05:48
BUN 18 mg/dl (9-20) 10/27/23 05:48
Creatinine 0.8 mg/dL (0.7-1.3) 10/27/23 05:48
Glucose 111 mg/dl (70-99) H 10/27/23 05:48
Vital Signs and I&O:
Vital Signs
Temp Pulse Resp BP Pulse Ox
97.9 F 69 18 121/66 95
10/27/23 07:51 10/27/23 10:48 10/27/23 07:51 10/27/23 10:48 10/27/23 08:00
Vital Signs
Temp Pulse Resp BP Pulse Ox
97.9 F 69 18 121/66 95
10/27/23 07:51 10/27/23 10:48 10/27/23 07:51 10/27/23 10:48 10/27/23 08:00
Intake & Output
10/25/23 10/26/23 10/27/23 10/28/23
07:59 07:59 07:59 07:59
Intake Total 1529.3 / 1540.1 653.1 / 653.1 326.7 / 720.0 393.3 / 393.3
Output Total 1465 / 1485 725 / 725 630 / 630
Balance 64.3 / 55.1 -71.9 / -71.9 -303.3 / 90.0 393.3 / 393.3
Physical Exam
Physical Exam
GEN: No distress, awake, alert, oriented x3. sitting in chair
HEENT: supple, anicteric, mmm, eomi
LUNGS: CTA B/L, no wheezes/rales
CV: Reg, S1/S2, no murmur
EXT: No cyanosis, clubbing. trace edema of B/L LE
NEURO: Gross non-focal
SKIN: Warm, pink, dry. No rash. Sternotomy site c/d/i.
--- NOTE | 2023-10-27 14:39 | CM ---
priced elijohn with [facility]- his monthly cost is $241- this does not include a deductible/this will be his monthly cost. he has a 30 day free coupon. he is agreeable to this cost.
--- NOTE | 2023-10-27 16:00 | PTCARENOTE ---
Showered. Instructions followed and reinforced
== END 2023-10-27 17:36 | disposition home or self-care (01) | DRG 235 ==
LOC: CVICU 13:01
PROVIDERS: Anesthesiology; Clinical Nurse Specialist Acute Care; Physician Assistant Medical; Physician Assistant Surgical; ADMITTING PHYSICIAN Thoracic Surgery (Cardiothoracic Vascular Surgery); CONSULT PHYSICIAN Internal Medicine Critical Care Medicine; OTHER PHYSICIAN Internal Medicine Interventional Cardiology
PROC: 02L70CK Occlusion of Left Atrial Appendage with Extraluminal Device, Open Approach (ICD-10-PCS; 2023-10-24)
PROC: 5A1221Z Performance of Cardiac Output, Continuous (ICD-10-PCS; 2023-10-24)
PROC: 02100Z9 Bypass Coronary Artery, One Artery from Left Internal Mammary, Open Approach (ICD-10-PCS; 2023-10-24)
PROC: 06BP4ZZ Excision of Right Saphenous Vein, Percutaneous Endoscopic Approach (ICD-10-PCS; 2023-10-24)
PROC: B24BZZ4 Ultrasonography of Heart with Aorta, Transesophageal (ICD-10-PCS; 2023-10-24)
PROC: 021109W Bypass Coronary Artery, Two Arteries from Aorta with Autologous Venous Tissue, Open Approach (ICD-10-PCS; 2023-10-24)
DX: I21.4 Non-ST elevation (NSTEMI) myocardial infarction (principal); I46.2 Cardiac arrest due to underlying cardiac condition; J95.821 Acute postprocedural respiratory failure; D62 Acute posthemorrhagic anemia; J98.11 Atelectasis; I31.9 Disease of pericardium, unspecified; J90 Pleural effusion, not elsewhere classified; I25.10 Atherosclerotic heart disease of native coronary artery without angina pectoris; E78.5 Hyperlipidemia, unspecified; D69.59 Other secondary thrombocytopenia; E86.1 Hypovolemia; E87.70 Fluid overload, unspecified; I48.91 Unspecified atrial fibrillation; I35.8 Other nonrheumatic aortic valve disorders; R07.81 Pleurodynia; Y83.8 Other surgical procedures as the cause of abnormal reaction of the patient, or of later complication, without mention of misadventure at the time of the procedure; Z82.49 Family history of ischemic heart disease and other diseases of the circulatory system
CPT/HCPCS: 71045; 71046; 80048; 80053; 80061; 81003; 82248; 82330; 82565; 82805; 82810; 82947; 82962; 83036; 83735; 83880; 84132; 84302; 84484; 84520; 85014; 85018; 85027; 85049; 85610; 85730; 86850; 86900; 86901; 86920; 93005; 93306; 93312; 93320; 93325; 93880; 94002; 94640

== ENCOUNTER 2023-12-20 08:51 | Outpatient (RCR) | payer MEDICARE, OTHER, SELFPAY | END 2023-12-20 23:59 | disposition home or self-care (01) | LOC: CRHB 08:51 | PROVIDERS: ATTENDING PHYSICIAN Internal Medicine Interventional Cardiology | DX: I50.32 Chronic diastolic (congestive) heart failure (principal); Z95.1 Presence of aortocoronary bypass graft | CPT/HCPCS: G0422; G0423 ==

== ENCOUNTER 2024-01-15 08:41 | Outpatient (RCR) | payer MEDICARE, OTHER, SELFPAY | END 2024-01-15 23:59 | disposition home or self-care (01) | LOC: CRHB 08:41 | PROVIDERS: ATTENDING PHYSICIAN Internal Medicine Interventional Cardiology | DX: I25.10 Atherosclerotic heart disease of native coronary artery without angina pectoris (principal); Z95.1 Presence of aortocoronary bypass graft | CPT/HCPCS: G0422; G0423 ==

== ENCOUNTER 2024-02-19 08:47 | Outpatient (RCR) | payer MEDICARE, OTHER, SELFPAY | END 2024-02-19 23:59 | disposition home or self-care (01) | LOC: CRHB 08:47 | PROVIDERS: ATTENDING PHYSICIAN Internal Medicine Interventional Cardiology | DX: I25.10 Atherosclerotic heart disease of native coronary artery without angina pectoris (principal); Z95.1 Presence of aortocoronary bypass graft | CPT/HCPCS: G0422; G0423 ==

== ENCOUNTER 2024-03-01 14:28 | Outpatient (RCR) | payer MEDICARE, OTHER, SELFPAY | END 2024-03-01 14:31 | disposition home or self-care (01) | LOC: CRHB 14:28 | PROVIDERS: ATTENDING PHYSICIAN Internal Medicine Interventional Cardiology | DX: Z95.1 Presence of aortocoronary bypass graft; I25.10 Atherosclerotic heart disease of native coronary artery without angina pectoris; Z86.74 Personal history of sudden cardiac arrest | CPT/HCPCS: G0422; G0423 ==

== ENCOUNTER → 2024-03-05 08:31 | Outpatient (REF) | payer MEDICARE, OTHER, SELFPAY | LOC: RCS 08:31 | PROVIDERS: ATTENDING PHYSICIAN Internal Medicine Cardiovascular Disease; FAMILY PHYSICIAN Family Medicine | DX: I25.10 Atherosclerotic heart disease of native coronary artery without angina pectoris (principal); I46.9 Cardiac arrest, cause unspecified | CPT/HCPCS: 93306 ==